=== PATIENT | male | born 1945 | race Caucasian/White ===

== ENCOUNTER → 2018-09-17 06:49 | Outpatient (CLI) | payer MEDICARE, SELFPAY ==
--- NOTE | 2018-09-17 06:51 | ECHOCS_ITS ---
Reason For Study: S/P CABG Procedure This was a 2D Doppler, Color Flow transthoracic echocardiogram. The study was technically limited. The study was technically difficult. Contrast injection was performed. Exam performed in department. Left Ventricle Normal LV size. Moderate segmental systolic dysfunction (see wall motion). The estimated ejection fraction is 25 %. [place] : Akinetic. Mid-anteroseptal : Akinetic. Infero-Basal: Normal. Mid-Inferior: Normal. Right Ventricle Normal RV size. ICD or pacer leads identified within the right ventricle. Normal systolic function. Atria Normal left atrium. Normal right atrium. Pulmonic Valve Normal pulmonic valve. Great Vessels Normal aortic root. The pulmonary artery is normal size. Normal inferior vena cava. Pericardium/Pleural No pericardial effusion. Medication Diluted definity 4.0ml given slow IV push to enhance endocardial definition. MMode/2D Measurements & Calculations LVIDd: 4.0 cm FS: 18.0 % LVOT diam: 2.0 cm LVIDs: 3.3 cm LVOT area: 3.0 cm2 RVDd: 2.2 cm Ao root diam: 2.9 cm LAV(MOD-bp): 49.1 ml LAV(MOD-bp) Indexed: 29.3 ml/m2 LA A4 area: 17.5 cm2 LAV(MOD-sp2): 45.8 ml LAV(MOD-sp4): 50.7 ml LA dimension(2D): 3.0 cm Doppler Measurements & Calculations MV E max ki: 82.8 cm/sec Lat Peak E' Ki: 9.4 cm/sec Med Peak E' Ki: 7.7 cm/sec MV A max ki: 63.9 cm/sec E/E' lat: 8.8 E/E' med: 10.7 MV E/A: 1.3 Ao V2 max: 147.5 cm/sec LV V1 max: 97.5 cm/sec PA V2 max: 64.3 cm/sec Ao max P.7 mmHg LV V1 max P.8 mmHg MARY(V,D): 2.0 cm2 TR max ki: 240.3 cm/sec TR max P.2 mmHg Interpretation Summary Normal LV size. Moderate segmental systolic dysfunction (see wall motion). The estimated ejection fraction is 25 %. Contrast injection was performed. Compared to previous study, the left ventricular systolic function has improved.. Ordering Physician: Vaibhav Pete Referring Physician: Vaibhav Pete Performed By: Ernestine Davis, ADITHYA, RVT
--- NOTE | 2018-09-17 11:17 | STRESSREP ---
Stress Test Report Pharmacologic myocardial perfusion stress test. 73-year-old man with a history of known coronary artery disease and ischemic cardiomyopathy. Resting EKG demonstrates sinus bradycardia with a rate of 59 bpm normal intervals and noted resting blood pressure 114/60 6 m of mercury. 0.4 mg of regadenoson was infused per usual protocol followed by rapid intravenous saline flush injection continuous EKG monitoring was performed. Patient maintained sinus rhythm throughout the recording the maximum heart rate attained was 83 bpm which was 56% maximum predicted heart rate the maximum workload was 1 metabolic equivalent. At rest there were no ST or T wave changes noted to suggest abnormal flow reserve at peak infusion no ST or T wave changes were noted to suggest abnormal flow reserve. Next Myocardial perfusion protocol. 10.4 mCi of technetium 99m sestamibi was injected at rest. 0.4 mg of regadenoson was infused per usual protocol. At peak infusion 32.3 mCi of technetium 99m sestamibi was injected stress images were obtained stress and rest images were reconstructed and compared in the short axis vertical long horizontal long axis. Perfusion SPECT analysis: Review of the stress images demonstrate an extensive defect noted involving the entire anterior wall to the apex and inferior apical wall. The septum also is noted to have moderately severe reduction in perfusion. The lateral wall and the inferior lateral wall appear to be the best perfused ocasio. The inferior wall is also normally perfused. The resting images demonstrate a similar patent. The above is asked suggestive of an extensive anterior septal, apical and septal infarct. No reversibility is noted to suggest ischemia. Gated SPECT analysis: The gated ejection fraction is 45% with severe hypokinesis of the anterior wall and apex. Conclusion: Ischemic cardiomyopathy. Extensive anterior anterior apical and anterior septal infarct No ischemia noted.
== END ==
PROVIDERS: Family Provider Nurse Practitioner Family; PCP Nurse Practitioner Family; Referring Provider Internal Medicine Cardiovascular Disease; Visit Provider Internal Medicine Cardiovascular Disease
DX: I25.10 Atherosclerotic heart disease of native coronary artery without angina pectoris (principal)
CPT/HCPCS: 78452; 93017; 93306; A9500; Q9957; A4216; C8929; J2785

== ENCOUNTER → 2022-09-15 | Outpatient (CLI) | payer MEDICARE, SELFPAY ==
--- NOTE | 2022-09-15 13:35 | RAD_ITS ---
STUDY: X-RAY CHEST REASON FOR EXAM: Male, 77 years old. Chest pain/pressure TECHNIQUE: PA and lateral views of the chest. COMPARISON: 05/01/2014 FINDINGS: Stable appearance of a left subclavian pacemaker The lungs are clear and expanded. There is no demonstrated pleural abnormality. Normal size heart. Normal mediastinum and jonathan. Normal visualized pulmonary arteries. There is atherosclerotic calcification of the aortic arch with tortuosity. Normal visualized thoracic spine. Normal visualized ribs, clavicles, and shoulders. There is no demonstrated abnormality of the visualized soft tissue structures of the upper abdomen. RAD/Chest PA and Lateral IMPRESSION: No acute pulmonary process Electronically Signed: Preet Veras MD at 15:29 EDT ,
[2022-09-15 15:16] LABS: Hematocrit 38.7 % (40-54); Mean Corp Hgb Conc 33.6 g/dL (32-36); Mean Corpuscular Hgb 31.9 pg (27.0-32.0); Mean Corpuscular Volume 95.1 fL (80-94); Mean Platelet Vol. 11.8 fl (6.2-12.0); Platelet Count 158 K/mm3 (150-450); RBC Distribution Width CV 15.6 % (11.6-14.6); RBC Distribution Width SD 54.1 fl (35.1-43.9); Red Blood Count 4.07 M/mm3 (4.6-6.2); White Blood Count 8.5 K/mm3 (4.4-11.0)
[2022-09-15 16:07] LABS: ALB/GLOB Ratio 1.1 RATIO (0.9-2.4); AST(SGOT) 22 U/L (15-37); Alanine Aminotransfer ALT/SGPT 16 U/L (16-61); Albumin, Serum 3.7 g/dL (3.2-5.0); Alkaline Phosphatase 109 U/L (45-117); Anion Gap 7 (5-15); BUN 21 mg/dL (7-18); BUN/Creat Ratio 11.9 RATIO (10-20); CRP 7.44 mg/L (0.0-3.0); Calcium,Total 8.9 mg/dL (8.5-10.1); Chloride 105 mmol/L (98-107); Creatinine, Serum 1.76 mg/dL (0.70-1.30); EST Glomerular Filtration Rate 40 mL/min (>60); Est Glom Filt Rate - Afr Amer 48 mL/min (>60); Globulin 3.5 g/dL (2.2-4.2); Glucose 79 mg/dL (74-106); Potassium 3.7 mmol/L (3.5-5.1); Protein, Total 7.2 g/dL (6.4-8.2); Sodium Level 140 mmol/L (136-145)
[2022-09-15 17:05] LABS: BNP,B-Type NATRIURETIC PEPTIDE 395.5 pg/mL (0-100)
== END | disposition home or self-care (01) ==
PROVIDERS: PCP Nurse Practitioner Family; Referring Provider Nurse Practitioner Family; Visit Provider Nurse Practitioner Family
DX: J44.1 Chronic obstructive pulmonary disease with (acute) exacerbation (principal); N18.30 Chronic kidney disease, stage 3 unspecified; I25.10 Atherosclerotic heart disease of native coronary artery without angina pectoris; R06.02 Shortness of breath; D53.9 Nutritional anemia, unspecified
CPT/HCPCS: 36415; 71046; 80053; 83880; 85027; 85379; 86140

== ENCOUNTER → 2022-09-16 | Outpatient (CLI) | payer MEDICARE, SELFPAY ==
--- NOTE | 2022-09-16 15:14 | CT_ITS ---
STUDY: CTA CHEST REASON FOR EXAM: Male, 77 years old. Shortness of breath for 6 months. History of MO and cardiac pacemaker. COPD. RADIATION DOSAGE (If Supplied By Facility): CTDIvol = ( 5.79 ) mGy, DLP = ( 251.32 ) mGycm TECHNIQUE: The examination was performed with the intravenous administration of IV 100mL Isovue-370. Post-processing of the angiographic images was performed, with multiplanar reformation and 3D reconstruction. Individualized dose optimization techniques were used for this CT. COMPARISON: Chest, September 15, 2022. FINDINGS: Normal enhancement of the main pulmonary artery and right and left pulmonary arteries. Normal enhancement of the bilateral peripheral pulmonary arteries. There is no demonstrated pulmonary embolism. Atherosclerotic changes of the thoracic aorta without aneurysm. There is no demonstrated aortic dissection. Normal heart and pericardium. Pacer leads are seen in the right heart. Moderate coronary artery calcifications. Calcified subcarinal lymph node. Normal hilar regions. Mildly thick-walled nondistended esophagus without obvious mass. Normal visualized trachea and bronchi. The lungs are hyper expanded, with flattening of the hemidiaphragms. No infiltrate or soft tissue mass. There are small calcified granulomata. Pleural-based calcifications are noted most marked in the lung apices. Pacer generator is seen in the soft tissues left upper chest wall. The soft tissues of the chest wall are otherwise unremarkable. Normal thyroid. Mild degenerative changes of the thoracic spine. Calcified granulomata are seen in the spleen. Question small hiatal hernia. The upper abdomen is otherwise grossly normal. CT/CTA Chest W/WO Contrast IMPRESSION: 1. No evidence of pulmonary embolus. 2. Atherosclerotic aorta without aneurysm or dissection. 3. Cardiac pacemaker. 4. Old granulomatous disease. 5. Pleural-based calcifications. Question asbestos related pleural disease. 6. Hiatal hernia. Electronically Signed: Sunday Galindo DO at 16:21 EDT Reading Location ID and State: [facility] / [place] Tel [phone], Service support ,
== END | disposition home or self-care (01) ==
LOC: CT 15:13
PROVIDERS: PCP Nurse Practitioner Family; Referring Provider Nurse Practitioner Family; Visit Provider Nurse Practitioner Family
DX: R06.02 Shortness of breath (principal); R79.89 Other specified abnormal findings of blood chemistry
CPT/HCPCS: 71275; Q9967

== ENCOUNTER 2023-02-13 16:44 | Inpatient (IN) | payer MEDICARE, SELFPAY ==
[2023-02-13] VITALS (8 sets, daily range): BP systolic 101–130; BP diastolic 55–62; PULSE 89–94; RESP 14–24; TEMP 36.7–37.2; O2SAT 96–100; BMI 22.1; BMI 20.4
--- NOTE | 2023-02-13 17:25 | EKG12_ITS ---
Test Reason : SOB Blood Pressure : / mmHG Vent. Rate : 094 BPM Atrial Rate : 094 BPM P-R Int : 116 ms QRS Dur : 084 ms QT Int : 312 ms P-R-T Axes : 019 -29 097 degrees QTc Int : 390 ms Normal sinus rhythm Normal ECG Confirmed by ARMANDO HULL, BE ([id number]), science editor NESS CONTEH ([id number]) on 02/16/2023 11:08:35 AM Referred By: JESSICA Confirmed By:MAGY ROBERTS MD
--- NOTE | 2023-02-13 17:30 | EX.ED.DYSGE1 ---
HPI History of Present Illness Chief Complaint: Shortness of Breath Informant: patient and spouse/S.O. Narrative Narrative: Patient presents with 2 different complaints. Patient's first complaint is pain near the lateral aspect of his right ankle. This started about 2 or 3 days ago. He had come home. It suddenly just started hurting him over the course of about an hour. He evidently has had great toe pain before but is never been diagnosed with gout. He has no known history of it. He has no trauma or injury. He has had history of vascular insufficiency but that did not present anywhere near like this. Patient is on Coumadin. But he has no swelling at the area. Patient was also at a different hospital emergency department yesterday because of this. They did ultrasound of the leg to evaluate for DVT and he does not have any. He has history of prior DVTs and is on and is taking his Coumadin. Patient's second complaint is dyspnea. But both the patient and his state that he has been short of breath since last summer almost all the time. It waxes and wanes and is really not different today than normal. He has seen his doctor. Over the last 6 or 8 months he has been on steroids a few times. They do not really help. I asked him when he last used his nebulizer and he states that was about a month ago. I asked when he last smoked and that was just earlier today. He does cough but he is not bringing up sputum. He is not coughing up blood. He is not having chest pain. It sounds like this dyspnea is really a chronic issue that is coming and going and not his primary reason for the visit today even though it is listed on the triage note. His lateral ankle pain is bothering him more. But the pain is only on the lateral aspect. [facility] Medical History (Updated 02/13/23 @ 21:[address] 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 Shortness of breath Home Medications aspirin 81 mg tablet,delayed release (Adult Low Dose Aspirin) 81 mg PO QDAY 01/21/18 [History Last Taken Unknown] atorvastatin 80 mg tablet 80 mg PO QDAY 01/21/18 [History Last Taken Unknown] warfarin 5 mg tablet (Coumadin) 7 mg PO QDAY 01/26/18 [History Last Taken Unknown] furosemide 40 mg tablet 40 mg PO QDAY #90 tabs 09/20/19 [Rx Last Taken Unknown] carvedilol 12.5 mg tablet 12.5 mg PO BID #180 tabs 04/27/20 [Rx Last Taken Unknown] losartan 25 mg tablet 25 mg PO DAILY #90 tabs 10/12/20 [Rx Last Taken Unknown] albuterol sulfate 90 mcg/actuation aerosol inhaler 2 puff inhalation Q6H SOB 02/13/23 [History Last Taken Unknown] cholecalciferol (vitamin D3) 1,250 mcg (50,000 unit) capsule 1,250 mcg PO DAILY 02/13/23 [History Last Taken Unknown] fluticasone 250 mcg-salmeterol 50 mcg/dose blistr powdr for inhalation (Wixela Inhub) 1 inh inhalation BID 02/13/23 [History Last Taken Unknown] montelukast 10 mg tablet 10 mg PO DAILY 02/13/23 [History Last Taken Unknown] pantoprazole 40 mg tablet,delayed release 40 mg PO DAILY 02/13/23 [History Last Taken Unknown] Allergy/AdvReac Type Severity Reaction Status Date / Time Penicillins AdvReac Severe Unknown Verified 02/13/23 16:45 Family History Uncle CAD (coronary artery disease) Surgical History History of coronary artery stent placement (08/23/10) History of implantable cardiac defibrillator (ICD) (12/2011) Status post femorofemoral bypass surgery Social History Smoking Status: Current every day smoker tobacco type: cigarettes alcohol intake: current alcohol intake frequency: holidays/special occasions only substance use type: does not use caffeine: Yes Type: coffee Number of servings: 1 ROS ROS ED Constitutional Constitutional ED: Denies chills, fever(s) or sweats ENT ENT ED: Denies rhinorrhea or sore throat Cardiovascular Cardiovascular: Denies chest pain, palpitations or racing heartbeat Respiratory/Chest Respiratory/Chest: Reports cough and dyspnea; Denies sputum Gastrointestinal Gastrointestinal: Denies abdominal pain, nausea or vomiting Genitourinary Genitourinary ED: Denies hematuria Musculoskeletal Musculoskeletal: Reports arthralgias; Denies myalgias Integumentary Denies Abrasions or rash Neurologic Neurologic: Denies paresthesias or weakness Hematologic/Lymphatic Hematologic/Lymphatic: Reports easy bleeding and easy bruising Allergic/Immunologic Allergic/Immunologic ED: Denies urticaria EXAM Physical Exam Narrative Exam Narrative: Patient awake alert no acute distress. He is on oxygen at this time. Carries on conversation but is not offering a lot of details without work. He is hard of hearing. HEENT shows no trauma. No petechiae intraorally. Conjunctive is not pale Neck shows no JVD. There is no stridor. Lungs: I can hear wheezing even without a stethoscope. He has diffuse expiratory wheezing throughout. I do not hear rhonchi. There is no apparent discomfort with breathing. Despite this, his saturations were 97% on room air showing no hypoxia. He was placed on 2 L and he is hanging at 100% on 2 L. Heart is regular. Rate of about 90. I do not hear murmur. However, he has very loud oscillatory signs from his lungs that would preclude hearing a murmur. Abdomen is thin and nontender Extremities show no swelling. No pallor. He has normal warmth. No sign of vascular insufficiency. He does have tenderness just over the distal fibula area on the right. He does not have tenderness to the medial malleolus. There is just a little redness in this area but is not warm. I can move the ankle [id number] without any obvious discomfort. No lymphangitic streaking. This does not appear to be septic ankle at all. Const Vital Signs: 02/13/23 16:45 02/13/23 16:44 02/13/23 16:51 Temperature 99 F Temperature Source Temporal Pulse Rate 94 Respiratory Rate 14 19 H Respiratory Effort Normal Non-Labored Respiratory Depth Normal Respiratory Pattern Normal Blood Pressure 130/60 H Blood Pressure Mean 83 Pulse Ox 100 97 Oxygen Delivery Method Non-Rebreather Room Air Room Air 02/13/23 17:57 02/13/23 17:57 02/13/23 20:11 Temperature Temperature Source Pulse Rate 94 89 Respiratory Rate 19 H 20 H Respiratory Effort Short of Breath Respiratory Depth Respiratory Pattern Tachypnea Blood Pressure Blood Pressure Mean Pulse Ox 97 Oxygen Delivery Method Room Air 02/13/23 20:13 Temperature 98.0 F Temperature Source Temporal Pulse Rate 89 Respiratory Rate 18 Respiratory Effort Respiratory Depth Respiratory Pattern Blood Pressure 101/62 Blood Pressure Mean 75 Pulse Ox 97 Oxygen Delivery Method Room Air MDM MDM MDM Narrative Medical decision making narrative: Patient's white count came back very high at 27,600. This is new. I went back and talk to the patient and family again. There is a new family member here. She states that she noted the foot was been bothering him for about 2 days. She states that she is pretty sure he had a fever yesterday. He felt very warm. She verifies that his breathing is really at baseline. I took a look at the leg again. I do not know if the light is better or his change. But he does have erythema more on the anterior lateral aspect of the zhao and the top of the foot and the foot is definitely warm. This is looking more more like a cellulitis. There are several areas on the toes and toenails that are easy access points for infection. I will start vancomycin. I think with his age overall illness level, high white count and infection admission is appropriate. My independent her potation of the single AP chest x-ray shows no sign of acute infiltrate. My independent interpretation of his three-view x-ray of the right ankle shows no acute bony process. There may be some soft tissue swelling. Radiology's review of these 2 films are similar. Lab Data Labs: Laboratory Results - last 24 hr 02/13/23 02/13/23 02/13/23 17:35 17:35 17:35 WBC 27.6 H RBC 3.75 L Hgb 11.7 L Hct 35.7 L MCV 95.2 H MCH 31.2 MCHC 32.8 RDW Std Deviation 49.8 H RDW Coeff of Curtis 14.4 Plt Count 150 MPV 10.9 Neut % (Auto) Not Reportable Absolute Neuts (auto) 25.9 H Absolute Lymphs (auto) 0.28 L Total Counted 100 Neutrophils % (Manual) 82 H Band Neutrophils % 9 H Lymphocytes % (Manual) 1 L Monocytes % (Manual) 5 Metamyelocytes % 3 H Diff Path Review May foll Platelet Estimate ADEQUATE RBC Morphology NORM C+C PT 20.0 H INR 1.7 Sodium 135 L Potassium 3.7 Chloride 99 Carbon Dioxide 30.0 Anion Gap 6 BUN 33 H Creatinine 2.64 H Estim Creat Clear Calc 20.35 Est GFR (MDRD) Af Amer 30 L Est GFR (MDRD) Non-Af 25 L BUN/Creatinine Ratio 12.5 Glucose 124 H Lactic Acid Uric Acid 9.4 H Calcium 9.5 02/13/23 19:15 WBC RBC Hgb Hct MCV MCH MCHC RDW Std Deviation RDW Coeff of Curtis Plt Count MPV Neut % (Auto) Absolute Neuts (auto) Absolute Lymphs (auto) Total Counted Neutrophils % (Manual) Band Neutrophils % Lymphocytes % (Manual) Monocytes % (Manual) Metamyelocytes % Diff Path Review Platelet Estimate RBC Morphology PT INR Sodium Potassium Chloride Carbon Dioxide Anion Gap BUN Creatinine Estim Creat Clear Calc Est GFR (MDRD) Af Amer Est GFR (MDRD) Non-Af BUN/Creatinine Ratio Glucose Lactic Acid 2.1 H* Uric Acid Calcium Radiography Diagnostic Testing: Clinical Impression(s) from Imaging Studies Ankle X-Ray 02/13/23 17:45 IMPRESSION: There is soft tissue swelling. Electronically Signed: Josiah Joy MD at 18:22 EDT , Chest X-Ray 02/13/23 17:45 IMPRESSION: There are no acute findings. Electronically Signed: Josiah Joy MD at 18:21 EDT , EKG Initial EKG: Comments: My independent interpretation of the patient's EKG done for dyspnea shows a normal sinus rhythm with overall rate 94. No acute ST elevation or depression. CO interval, QRS duration and QTc are normal. Management Discussion w/another healthcare provider: Hospitalist Discharge Plan Dx/Rx/DC Orders Clinical Impression: Cellulitis of leg, right, Leukocytosis, COPD exacerbation, DAMIR (acute kidney injury), Sepsis Disposition Disposition: [facility]
[2023-02-13] MEDS: MethylPREDNISolone 125 MG/2 ML Vial IV (17:36)
--- NOTE | 2023-02-13 17:45 | RAD_ITS ---
STUDY: XR Ankle Min 3 Views REASON FOR EXAM: Male, 77 years old. ANKLE PAIN TECHNIQUE: XR Ankle Min 3 Views RIGHT COMPARISON: None. FINDINGS: Normal visualized distal tibia and fibula. Normal medial and lateral malleoli. Normal tibiotalar articulation and ankle mortise. The visualized subtalar, talonavicular, calcaneocuboid and tarsal articulations are normal. There is a plantar calcaneal spur. There is soft tissue swelling around the ankle. RAD/Ankle min 3 Views IMPRESSION: There is soft tissue swelling. Electronically Signed: Josiah Joy MD at 18:22 EDT ,
--- NOTE | 2023-02-13 17:45 | RAD_ITS ---
STUDY: XR Chest 1 View 02/13/2023 5:41 PM REASON FOR EXAM: Male, 77 years old. CHEST PAIN SOb COMPARISON: 09/15/2022 TECHNIQUE: XR Chest 1 View FINDINGS: There is no demonstrated pleural abnormality. There are multiple median sternotomy wires. Normal heart size. Normal mediastinum. Normal jonathan. Prominent appearing increased interstitial lung markings. Normal visualized pulmonary arteries. There is atherosclerotic calcification of the aortic arch with tortuosity. There are diffuse degenerative changes of the visualized thoracic spine. There is degenerative osteoarthritis of the bilateral shoulders. There is no demonstrated abnormality of the visualized soft tissue structures of the upper abdomen. RAD/Chest 1 View (Portable) IMPRESSION: There are no acute findings. Electronically Signed: Josiah Joy MD at 18:21 EDT ,
[2023-02-13 17:50] LABS: Hematocrit 35.7 % (40-54); Hemoglobin 11.7 g/dL (13.0-16.5); Mean Corp Hgb Conc 32.8 g/dL (32-36); Mean Corpuscular Hgb 31.2 pg (27.0-32.0); Mean Corpuscular Volume 95.2 fL (80-94); Mean Platelet Vol. 10.9 fl (6.2-12.0); POSITIVE COUNT YES; POSITIVE DIFFERENTIAL YES; POSITIVE MORPHOLOGY YES; Platelet Count 150 K/mm3 (150-450); RBC Distribution Width CV 14.4 % (11.6-14.6); RBC Distribution Width SD 49.8 fl (35.1-43.9); Red Blood Count 3.75 M/mm3 (4.6-6.2); White Blood Count 27.6 K/mm3 (4.4-11.0)
[2023-02-13 17:56] LABS: Differential Indicated MANUAL DIFF
[2023-02-13] MEDS: Ipratropium/Albuterol Sulfate 3 ML AMPUL.NEB INHALATION (17:57)
[2023-02-13] MEDS: Albuterol 2.5 MG/3 ML VIAL.NEB. INHALATION (17:57)
[2023-02-13 18:04] LABS: Anion Gap 6 (5-15); BUN 33 mg/dL (7-18); BUN/Creat Ratio 12.5 RATIO (10-20); Calcium,Total 9.5 mg/dL (8.5-10.1); Chloride 99 mmol/L (98-107); Creatinine, Serum 2.64 mg/dL (0.70-1.30); EST Glomerular Filtration Rate 25 mL/min (>60); Est Glom Filt Rate - Afr Amer 30 mL/min (>60); Estimated Creatinine Clearance 20.35 ml/min; Glucose 124 mg/dL (74-106); Potassium 3.7 mmol/L (3.5-5.1); Sodium Level 135 mmol/L (136-145); Uric Acid 9.4 mg/dL (3.5-7.2)
[2023-02-13 18:06] LABS: International Normalized Ratio 1.7
[2023-02-13 18:16] LABS: Lymphocyte 1 % (19-41); Metamyelocyte 3 % (0-1); Monocyte 5 % (0-10); Neutrophil-Band 9 % (0-5); Neutrophil-Segmented 82 % (47-70); Total Cells Counted 100 (MANUAL DIFF)
[2023-02-13 18:18] LABS: Absolute Neutrophil Count 25.9 X10^3/uL (2.0-7.7); Lymphocyte # 0.28 X10^3/ul (0.83-4.51); Neutrophil # 25.93 X10^3/uL (2.7-7.7)
[2023-02-13 18:19] LABS: Absolute Lymphocyte Count 0.28 X10^3/uL (0.83-4.51); Platelet Estimate ADEQUATE (ADEQ); Red Cell Morphology NORM C+C NORMAL (NORM C&C)
[2023-02-13] MEDS: 0.9% Normal Saline 1,000 ML 999 ML IV (19:16)
[2023-02-13] MEDS: Vancomycin IV 1,000 MG/200 ML BAG 200 MG IV (20:09)
[2023-02-13 20:25] LABS: Lactic Acid 2.1 mmol/L (0.4-1.9)
--- NOTE | 2023-02-13 20:33 | PCM.HP.STD ---
HPI - General General Date of Admission: 02/13/23 Date of Service: 02/13/23 Chief Complaint: Right foot pain HPI Narrative TANMAY WHITNEY, is a 77 M with a significant history of heart failure with ejection fraction; DVT and COPD who was brought from the [facility] office by paramedics because of right foot pain causing him difficulty with ambulation. Because a day before presentation patient could walk to his [facility] office for an INR check and on the day of presentation patient had to be helped with ambulation his MD was concerned so patient was sent to the emergency department. Patient reports pain of severity 7 on a scale of 1-10 at his right foot. His pain worsens with ambulation and improves with rest. He reports erythema at his right foot. A day before presentation patient was at [facility] office for his right foot pain. At that time he had a temperature of 100.4 Fahrenheit. Chest x-ray and ultrasound of his right leg was done. Reportedly the ultrasound was negative for blood clots. Patient was discharged home. Family who was at the bedside reported that on the day before presentation patient only had a small spot of erythema. However patient's did have jennifer erythema of his right foot on the day of presentation. Associated with patient's symptoms is chills, rigors and poor appetite. Also patient at baseline has difficulty breathing. However his difficulty with breathing worsened a day before presentation and has persisted. He has a yellow productive cough that appears unchanged from baseline. 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 Shortness of breath Smoker Home Medications aspirin 81 mg tablet,delayed release (Adult Low Dose Aspirin) 81 mg PO QDAY 01/21/18 [History Last Taken Unknown] atorvastatin 80 mg tablet 80 mg PO QDAY 01/21/18 [History Last Taken Unknown] warfarin 5 mg tablet (Coumadin) 7 mg PO QDAY 01/26/18 [History Last Taken Unknown] furosemide 40 mg tablet 40 mg PO QDAY #90 tabs 09/20/19 [Rx Last Taken Unknown] carvedilol 12.5 mg tablet 12.5 mg PO BID #180 tabs 04/27/20 [Rx Last Taken Unknown] losartan 25 mg tablet 25 mg PO DAILY #90 tabs 10/12/20 [Rx Last Taken Unknown] albuterol sulfate 90 mcg/actuation aerosol inhaler 2 puff inhalation Q6H SOB 02/13/23 [History Last Taken Unknown] cholecalciferol (vitamin D3) 1,250 mcg (50,000 unit) capsule 1,250 mcg PO DAILY 02/13/23 [History Last Taken Unknown] fluticasone 250 mcg-salmeterol 50 mcg/dose blistr powdr for inhalation (Wixela Inhub) 1 inh inhalation BID 02/13/23 [History Last Taken Unknown] montelukast 10 mg tablet 10 mg PO DAILY 02/13/23 [History Last Taken Unknown] pantoprazole 40 mg tablet,delayed release 40 mg PO DAILY 02/13/23 [History Last Taken Unknown] Allergy/AdvReac Type Severity Reaction Status Date / Time Penicillins AdvReac Severe Unknown Verified 02/13/23 22:53 Family History Uncle CAD (coronary artery disease) Surgical History History of coronary artery stent placement (08/23/10) History of implantable cardiac defibrillator (ICD) (12/2011) Status post femorofemoral bypass surgery Social History Smoking Status: Current every day smoker tobacco type: cigarettes alcohol intake: current alcohol intake frequency: holidays/special occasions only substance use type: does not use caffeine: Yes Type: coffee Number of servings: 1 ROS ROS Narrative Pertinent positives and pertinent negatives as noted in HPI. All other systems were reviewed and are negative Vital Signs Vital Signs Vital Signs: 02/13/23 16:45 02/13/23 16:44 02/13/23 16:51 Temperature 99 F Temperature Source Temporal Pulse Rate 94 Respiratory Rate 14 19 H Respiratory Effort Normal Non-Labored Respiratory Depth Normal Respiratory Pattern Normal Blood Pressure 130/60 H Blood Pressure Mean 83 Pulse Ox 100 97 Oxygen Delivery Method Non-Rebreather Room Air Room Air 02/13/23 17:57 02/13/23 17:57 02/13/23 20:11 Temperature Temperature Source Pulse Rate 94 89 Respiratory Rate 19 H 20 H Respiratory Effort Short of Breath Respiratory Depth Respiratory Pattern Tachypnea Blood Pressure Blood Pressure Mean Pulse Ox 97 Oxygen Delivery Method Room Air 02/13/23 20:13 Temperature 98.0 F Temperature Source Temporal Pulse Rate 89 Respiratory Rate 18 Respiratory Effort Respiratory Depth Respiratory Pattern Blood Pressure 101/62 Blood Pressure Mean 75 Pulse Ox 97 Oxygen Delivery Method Room Air Weight Weight: 62.4 kg Body Mass Index (BMI) 22.1 Physical Exam Narrative Physical exam: General: Well-nourished, well-developed. Head: Normocephalic, atraumatic, no tenderness Eyes: Vision is grossly intact. EOMI ENT, no trauma, dry mucous membranes, no rhinorrhea Neck: Nontender, No thyromegaly. CVS: Regular rate and rhythm. S1-S2 present. No murmur, gallop or rub. Respiratory : Tachypnea; audible wheezing. Abdomen: Soft, nontender, nondistended, normal bowel sounds, no masses : Deferred Back: Nontender, no CVA tenderness. Extremities: Erythema and tenderness of lateral side of right foot; Skin: Normal color, no trauma, abrasions Neuro: Alert, oriented, cranial nerves II through XII grossly intact. Psychiatry: Normal mood. Normal affect. Not depressed. Not anxious. Results Lab / Micro Data Result Diagrams: 02/13/23 17:35 02/13/23 17:35 Labs: Laboratory Results - last 24 hr 02/13/23 17:35: WBC 27.6 H, RBC 3.75 L, Hgb 11.7 L, Hct 35.7 L, MCV 95.2 H, MCH 31.2, MCHC 32.8, RDW Std Deviation 49.8 H, RDW Coeff of Curtis 14.4, Plt Count 150, MPV 10.9, Neut % (Auto) Not Reportable, Absolute Neuts (auto) 25.9 H, Absolute Lymphs (auto) 0.28 L, Total Counted 100, Neutrophils % (Manual) 82 H, Band Neutrophils % 9 H, Lymphocytes % (Manual) 1 L, Monocytes % (Manual) 5, Metamyelocytes % 3 H, Diff Path Review March, Platelet Estimate ADEQUATE, RBC Morphology NORM C+C 02/13/23 17:35: Sodium 135 L, Potassium 3.7, Chloride 99, Carbon Dioxide 30.0, Anion Gap 6, BUN 33 H, Creatinine 2.64 H, Estim Creat Clear Calc 20.35, Est GFR (MDRD) Af Amer 30 L, Est GFR (MDRD) Non-Af 25 L, BUN/Creatinine Ratio 12.5, Glucose 124 H, Uric Acid 9.4 H, Calcium 9.5 02/13/23 17:35: PT 20.0 H, INR 1.7 02/13/23 19:15: Lactic Acid 2.1 H* Radiology Impression Ankle X-Ray 02/13/23 17:45 IMPRESSION: There is soft tissue swelling. Electronically Signed: Josiah Joy MD at 18:22 EDT , Chest X-Ray 02/13/23 17:45 IMPRESSION: There are no acute findings. Electronically Signed: Josiah Joy MD at 18:21 EDT , Assessment & Plan Assessment/Plan (1) Cellulitis of leg, right: (2) Leukocytosis: (3) DAMIR (acute kidney injury): (4) COPD exacerbation: (5) Cellulitis of foot: (6) Sepsis: PLAN: Plan The patient presented with sepsis due to (cellulitis) with acute sepsis related organ dysfunction as evidenced by (organ dysfunction/s of lactic acidosis and DAMIR). SIRS criteria: Heart rate more than 90 WBC more than 12,000 (patient has a white count of 27,600), trend CBC Lactate more than 2 mmol/L; trend. Cellulitis of right leg and right foot Of note patient also has bandemia of 9% Differential diagnosis includes gout. Of note patient's uric acid is elevated, 9.4 (normal 3.5-7.2). Patient is receiving steroids for COPD which would also help with gout. Vancomycin IV started emergency department and continued. Reports penicillin allergy as a child without reporting any specific allergy symptoms. Will start patient on cefazolin IV. Acute exacerbation of COPD COVID antigen and rapid flu antigen ordered. Impression of chest x-ray by radiologist: There are no acute findings. Actual chest x-ray image was visualized and independently interpreted and I agree with radiologist interpretation. Scheduled DuoNeb Albuterol as needed Antibiotics as above. Monitor BMP and CBC DAMIR on CKD stage IIIb Creatinine presentation was 2.64. His creatinine on 06/15/2022 was 1.76. Hold home Lasix and losartan. Avoid nephrotoxic's. Gentle IV hydration. Trend BMP. History of DVT with subtherapeutic INR Lovenox ordered for bridging. Escalate home warfarin dose when home dose is verified. Chronic heart failure with reduced ejection fraction/ischemic cardiomyopathy Last echocardiogram on file was on 09/17/2018. Echocardiogram at that time showed EF of 25% Appears stable Check BNP Aspirin, carvedilol continued. Atorvastatin continued DVT Prophylaxis: Lovenox as above. Charges/Coding Visit Charges Inpatient E&M: 58137 Init Hosp L3
[2023-02-13 23:23] LABS: Reflex Lactate? Y
[2023-02-13] MEDS: 0.9% Normal Saline 1,000 ML 60 ML IV (23:23)
[2023-02-13] MEDS: Cefazolin 1 GM/50 ML BAG IV (23:38)
[2023-02-13] MEDS: Carvedilol 12.5 MG Tablet PO (23:38)
[2023-02-13] MEDS: Atorvastatin Calcium 80 MG Tablet PO (23:38)
[2023-02-13] MEDS: Enoxaparin 60 MG/0.6 ML Syringe SC (23:38)
[2023-02-14] VITALS (14 sets, daily range): BP systolic 90–113; BP diastolic 50–60; PULSE 82–95; RESP 16–22; TEMP 36.5–36.9; O2SAT 94–97
[2023-02-14] MEDS: Ipratropium/Albuterol Sulfate 3 ML AMPUL.NEB INHALATION ×6 (00:12→23:03)
--- NOTE | 2023-02-14 00:26 | PCM.RX.CS ---
Consult Pharmacy has been consulted to manage selected antiobiotic: Vancomycin Type of Consult: New start Suspected Infection: Sepsis Prior Doses of Antibiotics Received/Current Regimen: Medications Vancomycin HCl () 500 mg in 100 mls @ 100 mls/hr IV Q24H DAGOBERTO Discontinued Medications Vancomycin HCl (Vancomycin) 1,000 mg in 200 mls @ 200 mls/hr 15 mg/kg (1000 mg) IV X1 ONE Stop: 02/13/23 20:37 Last Admin: 02/13/23 21:10 Dose: Infused Labs: Sodium 135 mmol/L (136-145) L 02/13/23 17:35 Potassium 3.7 mmol/L (3.5-5.1) 02/13/23 17:35 Chloride 99 mmol/L (98-107) 02/13/23 17:35 Carbon Dioxide 30.0 mmol/L (21.0-32.0) 02/13/23 17:35 Anion Gap 6 (5-15) 02/13/23 17:35 BUN 33 mg/dL (7-18) H 02/13/23 17:35 Creatinine 2.64 mg/dL (0.70-1.30) H 02/13/23 17:35 Est GFR (MDRD) Af Amer 30 mL/min (>60) L 02/13/23 17:35 Est GFR (MDRD) Non-Af 25 mL/min (>60) L 02/13/23 17:35 BUN/Creatinine Ratio 12.5 RATIO (10-20) 02/13/23 17:35 Glucose 124 mg/dL (74-106) H 02/13/23 17:35 Microbiology: Microbiology 02/13/23 22:20 Nasal Secretion SARS-CoV-2 & FLU Antigen (Rapid) - Final Weight used for dosin.3 kg Estimated Creatinine Clearance: 20.4 Goal Trough: 15-20 mcg/mL Pharmacy Plan for Drug Dosing: Pharmacy Service will continue to monitor and adjust dosing as required. Follow-Up Labs: Trough Vancomycin Labs to be done on [date and time ordered]: 02/15/23 @1930
--- NOTE | 2023-02-14 01:30 | NURSING ---
This RN took over patient care at this time.
[2023-02-14] MEDS: 0.9% Saline Lock 10 ML Syringe IV ×2 (06:22→21:54)
[2023-02-14 07:07] LABS: Mean Corp Hgb Conc 33.3 g/dL (32-36); Mean Corpuscular Hgb 31.1 pg (27.0-32.0); Mean Corpuscular Volume 93.2 fL (80-94); Mean Platelet Vol. 11.3 fl (6.2-12.0); POSITIVE COUNT YES; POSITIVE DIFFERENTIAL YES; POSITIVE MORPHOLOGY YES; Platelet Count 124 K/mm3 (150-450); RBC Distribution Width CV 14.3 % (11.6-14.6); RBC Distribution Width SD 49.5 fl (35.1-43.9); Red Blood Count 3.54 M/mm3 (4.6-6.2); White Blood Count 26.1 K/mm3 (4.4-11.0)
[2023-02-14 07:11] LABS: Differential Indicated MANUAL DIFF
[2023-02-14 07:31] LABS: Metamyelocyte 2 % (0-1); Neutrophil-Band 10 % (0-5); Neutrophil-Segmented 76 % (47-70); Total Cells Counted 100 (MANUAL DIFF)
[2023-02-14 07:32] LABS: Acanthocytes RARE; Anion Gap 6 (5-15); BUN 34 mg/dL (7-18); BUN/Creat Ratio 15.8 RATIO (10-20); Calcium,Total 8.7 mg/dL (8.5-10.1); Chloride 104 mmol/L (98-107); Creatinine, Serum 2.15 mg/dL (0.70-1.30); EST Glomerular Filtration Rate 32 mL/min (>60); Est Glom Filt Rate - Afr Amer 38 mL/min (>60); Estimated Creatinine Clearance 22.95 ml/min; Glucose 161 mg/dL (74-106); Lymphocyte 9 % (19-41); Monocyte 3 % (0-10); Platelet Estimate SLT DEC (ADEQ); Potassium 3.5 mmol/L (3.5-5.1); Sodium Level 135 mmol/L (136-145)
[2023-02-14 07:33] LABS: Absolute Lymphocyte Count 2.35 X10^3/uL (0.83-4.51); Absolute Neutrophil Count 22.5 X10^3/uL (2.0-7.7); Lymphocyte # 2.35 X10^3/ul (0.83-4.51); Neutrophil # 22.48 X10^3/uL (2.7-7.7)
[2023-02-14 07:42] LABS: BNP,B-Type NATRIURETIC PEPTIDE 482.5 pg/mL (0-100)
--- NOTE | 2023-02-14 07:50 | EKG12_ITS ---
Test Reason : RHYTHM CHANGE Blood Pressure : / mmHG Vent. Rate : 082 BPM Atrial Rate : 082 BPM P-R Int : 138 ms QRS Dur : 088 ms QT Int : 360 ms P-R-T Axes : 087 -33 101 degrees QTc Int : 420 ms Sinus rhythm with Premature ventricular complexes or Fusion complexes Left axis deviation Pulmonary disease pattern Nonspecific T wave abnormality Abnormal ECG Confirmed by ARMANDO HULL, BE ([id number]), dictionary editor CYNTHIA MCKEON ([id number]) on 02/18/2023 10:21:07 AM Referred By: RENA Confirmed By:MAGY ROBERTS MD
[2023-02-14 08:35] LABS: International Normalized Ratio 2.3; Prothrombin Time (Protime)PT. 24.9 SECONDS (11.7-14.9)
--- NOTE | 2023-02-14 09:15 | CASEMGMT ---
TRACIE ALY Assessment: Face to Face with pt for initial transition planning/care coordination assessment. TRACIE ALY introduced self and role at [facility], pt voices understanding and consents to assessment. Pt is A/O x4 and answers all questions appropriately at this time. Pt lying in bed in no distress. Care providers, pharmacy, and demographics verified/updated. Admitting Dx:sepsis, copd exac PCP: Elliot Thompson FINANCIAL ADVISOR Specialists: Pt states he just switched narcotics investigator to one in [place] but does not know her name. Preferred Pharmacy: [facility] Insurance: [employer] Prescription Benefit: yes LNOK:Amalia Valiente, Living Arrangements: Pt lives with in a split level home with a couple of steps to enter. Pt reports he is I in ADL's and denies concerns at home. Transportation: Pt drives self and denies concerns with transportation. DME/HHC/SNF: Pt denies having any AD, he has grab bars in the bathroom. Pt denies hx of HHC or SNF stays. Pt states no concerns with going home at time of dc. Pt states no further concerns/needs. CM to follow. Advised pt to ask CM if any further question/concerns/needs arise, voices understanding. Pt Goal: Home Plan:Home
[2023-02-14] MEDS: Pantoprazole Sodium 40 MG Tablet PO (10:36)
[2023-02-14] MEDS: Enoxaparin 60 MG/0.6 ML Syringe SC (10:36)
[2023-02-14] MEDS: Montelukast 10 MG Tablet PO (10:36)
[2023-02-14] MEDS: Cefazolin 1 GM/50 ML BAG IV ×2 (10:36→21:54)
[2023-02-14] MEDS: Aspirin E.C. 81 MG Tablet PO (10:37)
[2023-02-14] MEDS: Ensure Plus High Protein 120 ML LIQUID PO ×3 (10:38→17:17)
[2023-02-14] MEDS: Carvedilol 12.5 MG Tablet PO ×2 (10:45→17:17)
--- NOTE | 2023-02-14 16:41 | PCM.PN.HOSP ---
Reason for Visit Reason for Visit: Diagnoses Sepsis, unspecified organism (02/13/23) Elevated white blood cell count, unspecified (02/13/23) Chronic obstructive pulmonary disease with (acute) exacerbation (02/13/23) Cellulitis of right lower limb (02/13/23) Cellulitis of unspecified part of limb (02/13/23) Acute kidney failure, unspecified (02/13/23) Subjective Subjective Patient was seen and examined today, his voice is hoarse but he states that this is his normal voice. He states that it is caused by COPD. Patient was admitted yesterday for cellulitis of the right lower leg and ankle area. Patient's white blood cell count today was 26.1 Objective Data Objective Data Vital Signs: Vital Signs Temp Pulse Resp BP Pulse Ox O2 Del Method 97.7 F L 90 20 H 91/50 L 97 Room Air 02/14/23 15:27 02/14/23 16:00 02/14/23 15:27 02/14/23 15:27 02/14/23 15:27 02/14/23 15:27 Oxygen Delivery Method Room Air Weight: 57.3 kg Body Mass Index (BMI) 20.4 Intake & Output: Intake and Output for Last 24 Hours 02/12/23 02/13/23 02/14/23 23:59 23:59 23:59 Intake Total 1325 / 1325 410 / 410 Output Total 500 / 500 Balance 1325 / 1325 -90 / -90 Lab / Micro Data Result Diagrams: 02/14/23 06:32 02/14/23 06:32 Labs: Laboratory Results - last 24 hr 02/13/23 17:35: WBC 27.6 H, RBC 3.75 L, Hgb 11.7 L, Hct 35.7 L, MCV 95.2 H, MCH 31.2, MCHC 32.8, RDW Std Deviation 49.8 H, RDW Coeff of Curtis 14.4, Plt Count 150, MPV 10.9, Neut % (Auto) Not Reportable, Absolute Neuts (auto) 25.9 H, Absolute Lymphs (auto) 0.28 L, Total Counted 100, Neutrophils % (Manual) 82 H, Band Neutrophils % 9 H, Lymphocytes % (Manual) 1 L, Monocytes % (Manual) 5, Metamyelocytes % 3 H, Diff Path Review May foll, Platelet Estimate ADEQUATE, RBC Morphology NORM C+C 02/13/23 17:35: Sodium 135 L, Potassium 3.7, Chloride 99, Carbon Dioxide 30.0, Anion Gap 6, BUN 33 H, Creatinine 2.64 H, Estim Creat Clear Calc 20.35, Est GFR (MDRD) Af Amer 30 L, Est GFR (MDRD) Non-Af 25 L, BUN/Creatinine Ratio 12.5, Glucose 124 H, Uric Acid 9.4 H, Calcium 9.5 02/13/23 17:35: PT 20.0 H, INR 1.7 02/13/23 19:15: Lactic Acid 2.1 H* 02/14/23 00:20: Lactic Acid 2.0 02/14/23 06:32: Sodium 135 L, Potassium 3.5, Chloride 104, Carbon Dioxide 25.0, Anion Gap 6, BUN 34 H, Creatinine 2.15 H, Estim Creat Clear Calc 22.95, Est GFR (MDRD) Af Amer 38 L, Est GFR (MDRD) Non-Af 32 L, BUN/Creatinine Ratio 15.8, Glucose 161 H, Calcium 8.7 02/14/23 06:32: WBC 26.1 H, RBC 3.54 L, Hgb 11.0 L, Hct 33.0 L, MCV 93.2, MCH 31.1, MCHC 33.3, RDW Std Deviation 49.5 H, RDW Coeff of Curtis 14.3, Plt Count 124 L, MPV 11.3, Neut % (Auto) Not Reportable, Absolute Neuts (auto) 22.5 H, Absolute Lymphs (auto) 2.35, Total Counted 100, Neutrophils % (Manual) 76 H, Band Neutrophils % 10 H, Lymphocytes % (Manual) 9 L, Monocytes % (Manual) 3, Metamyelocytes % 2 H, Diff Path Review May vladislav, Platelet Estimate SLT DEC, Acanthocytes (Spur) RARE 02/14/23 06:32: PT 24.9 H, INR 2.3 02/14/23 06:32: B-Natriuretic Peptide 482.5 H Micro: Microbiology 02/13/23 19:15 Blood Culture (Wb) - Anticubital Left Blood Culture - Preliminary 02/13/23 19:30 Blood Culture (Wb) - No Site/Description Given Blood Culture - Preliminary 02/13/23 22:20 Nasal Secretion SARS-CoV-2 & FLU Antigen (Rapid) - Final Radiography Diagnostic Testing: Radiology Impression Ankle X-Ray 02/13/23 17:45 IMPRESSION: There is soft tissue swelling. Electronically Signed: Josiah Joy MD at 18:22 EDT , Chest X-Ray 02/13/23 17:45 IMPRESSION: There are no acute findings. Electronically Signed: Josiah Joy MD at 18:21 EDT , Physical Exam Const alert, oriented x3 and no apparent distress General Appearance: cooperative, well kempt and well developed Orientation / Consciousness: awake, oriented to person and oriented to place HEENT normocephalic, head/scalp atraumatic and moist oral mucous membranes HEENT Narrative: Patient has a hoarse voice Eyes PERRL, EOMs intact bilaterally and conjunctivae normal Neck supple, no JVD, thyroid normal and no carotid bruits General: trachea midline Resp normal respiratory effort, no retractions, no use of accessory muscles and clear to auscultation bilaterally Auscultation: Negative for rales, rhonchi or wheezes Cardio regular rate, regular rhythm, S1 normal heart sound, S2 normal heart sound, no murmurs, no rub and no gallops GI normal to inspection, nondistended, normoactive bowel sounds, soft to palpation, non-tender and non-distended Extremity Extremity Narrative: There is some edema and warmth of the patient's right ankle and dorsal foot area, this extends to right above the ankle area proximally, this area is slightly tender to palpation Skin no rashes or lesions noted General Skin Exam: no breakdown Neuro oriented x3, CN's II-XII intact bilaterally, no focal motor deficits and no sensory deficits noted Sensorium / Orientation: awake and alert Speech: speech normal Psych affect normal Assessment & Plan Assessment/Plan (1) Cellulitis of leg, right: PLAN: Plan 1. Sepsis secondary to cellulitis of the right foot and ankle-I will change the patient's antibiotic coverage to Rocephin, Ancef will be discontinued #2 dehydration on a backdrop of what appears to be chronic kidney disease-patient's last creatinine in the chart before this admission was 09/15/2022, his creatinine at that time was 1.76-creatinines before that time for several years previous and they were also elevated but not to that extent. I suspect the patient has a backdrop of chronic kidney disease. Continue present antibiotic fluid administration, repeat BMP tomorrow #3 chronic obstructive pulmonary disease with exacerbation-I have elected to continue the patient's aerosol treatments and IV corticosteroids for now #4 atherosclerotic heart disease-continue present medications #5 history of ischemic cardiomyopathy-patient's last echocardiogram on file here is from 2017, his EF was 25% at that time, continue home medications, according to cardiology visits contained in his medical record here, patient has a history of an ICD. He also has a history of atrial fibrillation and he is currently on Coumadin #6 hyperlipidemia-patient is on a statin currently #7 essential hypertension-patient will remain on his present medication #8 chronic use of Coumadin-patient has a past history of PE and DVT, he will remain on Coumadin at this time, INR was 2.3 on admission, he also has a history of atrial fibrillation #9 paroxysmal atrial fibrillation-patient remains on Coumadin at this time #10 hypercoagulable state secondary to #9-patient is on Coumadin Total clinical time spent by myself addressing the patient's medical issues, reviewing all of his data, and collaborating with patient's care team: 37 minutes Charges/Coding Visit Charges Inpatient E&M: 34837 Subs Hosp L2
[2023-02-14] MEDS: 0.9% Normal Saline 1,000 ML 60 ML IV (16:56)
[2023-02-14] MEDS: Vancomycin IV 500 MG/100 ML BAG 100 MG IV (19:49)
[2023-02-14] MEDS: Atorvastatin Calcium 80 MG Tablet PO (19:50)
[2023-02-15] VITALS (10 sets, daily range): BP systolic 83–111; BP diastolic 47–60; PULSE 81–94; RESP 16–18; TEMP 36.2–36.6; O2SAT 95–98
[2023-02-15 05:41] LABS: Hematocrit 30.9 % (40-54); Hemoglobin 10.2 g/dL (13.0-16.5); Mean Corpuscular Hgb 30.6 pg (27.0-32.0); Mean Corpuscular Volume 92.8 fL (80-94); Mean Platelet Vol. 12.3 fl (6.2-12.0); POSITIVE COUNT YES; POSITIVE DIFFERENTIAL YES; POSITIVE MORPHOLOGY YES; Platelet Count 150 K/mm3 (150-450); RBC Distribution Width CV 14.5 % (11.6-14.6); Red Blood Count 3.33 M/mm3 (4.6-6.2); White Blood Count 25.5 K/mm3 (4.4-11.0)
[2023-02-15 05:46] LABS: Differential Indicated MANUAL DIFF
[2023-02-15 05:51] LABS: International Normalized Ratio 2.5; Prothrombin Time (Protime)PT. 26.3 SECONDS (11.7-14.9)
[2023-02-15 06:33] LABS: Acanthocytes RARE; Lymphocyte 1 % (19-41); Metamyelocyte 1 % (0-1); Monocyte 7 % (0-10); Neutrophil-Band 8 % (0-5); Neutrophil-Segmented 83 % (47-70); Platelet Estimate ADEQUATE (ADEQ); Total Cells Counted 100 (MANUAL DIFF)
[2023-02-15 06:34] LABS: Absolute Lymphocyte Count 0.25 X10^3/uL (0.83-4.51); Absolute Neutrophil Count 23.2 X10^3/uL (2.0-7.7); Lymphocyte # 0.25 X10^3/ul (0.83-4.51); Neutrophil # 23.17 X10^3/uL (2.7-7.7)
[2023-02-15] MEDS: Ipratropium/Albuterol Sulfate 3 ML AMPUL.NEB INHALATION ×5 (07:23→19:45)
[2023-02-15] MEDS: Montelukast 10 MG Tablet PO (08:53)
[2023-02-15] MEDS: Pantoprazole Sodium 40 MG Tablet PO (08:53)
[2023-02-15] MEDS: Aspirin E.C. 81 MG Tablet PO (08:53)
[2023-02-15] MEDS: Enoxaparin 60 MG/0.6 ML Syringe SC (08:53)
[2023-02-15] MEDS: Cefazolin 1 GM/50 ML BAG IV (08:56)
[2023-02-15] MEDS: Ensure Plus High Protein 120 ML LIQUID PO ×4 (08:56→20:09)
[2023-02-15] MEDS: 0.9% Normal Saline 1,000 ML 60 ML IV (09:39)
--- NOTE | 2023-02-15 11:52 | CT_ITS ---
HISTORY: hoarseness. TECHNIQUE: Helically acquired images were obtained of the neck after the intravenous administration of 100 mL Isovue please. A radiation dose optimization technique was used for this scan. 287 images. COMPARISON: None. FINDINGS: Motion artifact lowers the sensitivity of examination. NASOPHARYNX: Unremarkable. SUPRAHYOID NECK: Unremarkable oropharynx, oral cavity, parapharyngeal space, and retropharyngeal space. INFRAHYOID NECK: Unremarkable epiglottis. Small bilateral laryngoceles incidentally noted. Mild asymmetric soft tissue thickening and enhancement of the left hypopharynx and in the left vocal fold measuring 8 x 12 mm. THYROID: No focal lesions. SALIVARY GLANDS: Homogeneous parotid and submandibular glands. LYMPH NODES: No cervical or supraclavicular lymphadenopathy. VASCULAR STRUCTURES: Carotid atherosclerosis particularly on the left, obscured by motion artifact. PARANASAL SINUSES, MASTOID AIR CELLS: No significant air fluid levels. OSSEOUS STRUCTURES: Degenerative change LUNG APICES: Emphysema with calcified pleural parenchymal scarring. Cardiac pacemaker noted. CT/Soft Tissue Neck WITH Contrast IMPRESSION: Asymmetric soft tissue thickening of the left hypopharynx with a small enhancing nodule in the left vocal cord, which may represent an inflammatory or neoplastic lesion. Recommend correlation with direct visualization. Electronically Signed: Maeve Hopson MD at 14:17 EDT ,
--- NOTE | 2023-02-15 11:52 | CT_ITS ---
HISTORY: hoarseness, COPD. TECHNIQUE: CT of the chest was performed after the intravenous administration of 100 mL Isovue-370. Coronal and sagittal reformatted images. Individualized dose optimization techniques were used for this CT. 818 images. COMPARISON: Complex R3 3123, CT 09/16/2022. FINDINGS: CENTRAL AIRWAYS: Patent. LUNGS: Biapical emphysema with calcified biapical pleural parenchymal scarring. Stable pleural-based 2 mm right lower lobe nodule laterally. Mild dependent right lower lobe atelectasis. Calcified lingular granuloma. PLEURA: No pneumothorax or significant pleural effusion. HEART/PERICARDIUM: Heart within normal limits in size with pacemaker in place and multivessel coronary artery disease. No pericardial effusion. AORTA/VESSELS: No thoracic aortic aneurysm or dissection flap. Atherosclerosis noted. No filling defect identified in the pulmonary arteries. MEDIASTINUM/JUSTA: Small calcified subcarinal lymph node. OSSEOUS STRUCTURES: Degenerative change. UPPER ABDOMEN: Calcified splenic granulomas. Ulcerated mural thrombus and calcified plaque in the abdominal aorta. CT/Chest WITH Contrast IMPRESSION: No evidence of pulmonary embolism, thoracic aortic aneurysm, or dissection. No acute abnormality identified with biapical pulmonary emphysema and calcified pleural parenchymal scarring. Electronically Signed: Maeve Hopson MD at 13:42 EDT ,
[2023-02-15] MEDS: Carvedilol 12.5 MG Tablet PO (17:14)
--- NOTE | 2023-02-15 18:04 | PN.HOSP_ITS ---
Reason for Visit Reason for Visit: Diagnoses Sepsis, unspecified organism (02/13/23) Elevated white blood cell count, unspecified (02/13/23) Chronic obstructive pulmonary disease with (acute) exacerbation (02/13/23) Cellulitis of right lower limb (02/13/23) Cellulitis of unspecified part of limb (02/13/23) Acute kidney failure, unspecified (02/13/23) Subjective Subjective Was seen and examined today, his white count is declining slightly but is still elevated. Patient's blood culture grew out strep pyogenes. I talked to the who was in the room at the time my examination, patient has been hoarse ever since last June, she complained that he has been weak recently, I told her that we would have PT and OT see the patient. Objective Data Objective Data Vital Signs: Vital Signs Temp Pulse Resp BP Pulse Ox O2 Del Method 97.8 F 89 16 104/55 L 97 Room Air 02/15/23 14:17 02/15/23 17:11 02/15/23 15:00 02/15/23 17:11 02/15/23 14:17 02/15/23 14:42 Oxygen Delivery Method Room Air Weight: 57.3 kg Body Mass Index (BMI) 20.4 Intake & Output: Intake and Output for Last 24 Hours 02/13/23 02/14/23 02/15/23 23:59 23:59 23:59 Intake Total 1325 / 1325 1947.33 / 1947.33 1583 / 1583 Output Total 500 / 900 925 / 925 Balance 1325 / 1325 1447.33 / 1047.33 658 / 658 Lab / Micro Data Result Diagrams: 02/15/23 05:09 02/14/23 06:32 Labs: Laboratory Results - last 24 hr 02/15/23 05:09: PT 26.3 H, INR 2.5 02/15/23 05:09: WBC 25.5 H, RBC 3.33 L, Hgb 10.2 L, Hct 30.9 L, MCV 92.8, MCH 30.6, MCHC 33.0, RDW Std Deviation 49.0 H, RDW Coeff of Curtis 14.5, Plt Count 150, MPV 12.3 H, Neut % (Auto) Not Reportable, Absolute Neuts (auto) 23.2 H, Absolute Lymphs (auto) 0.25 L, Total Counted 100, Neutrophils % (Manual) 83 H, Band Neutrophils % 8 H, Lymphocytes % (Manual) 1 L, Monocytes % (Manual) 7, Metamyelocytes % 1, Diff Path Review May foll, Platelet Estimate ADEQUATE, Acanthocytes (Spur) RARE Micro: Microbiology 02/13/23 19:30 Blood Culture (Wb) - No Site/Description Given Blood Culture - Preliminary Streptococcus pyogenes 02/13/23 19:15 Blood Culture (Wb) - Anticubital Left Bacteria Detection (PCR) - Final Streptococcus pyogenes 02/13/23 19:15 Blood Culture (Wb) - Anticubital Left Blood Culture - Prelimi nary Streptococcus pyogenes 02/13/23 22:20 Nasal Secretion SARS-CoV-2 & FLU Antigen (Rapid) - Final Radiography Diagnostic Testing: Radiology Impression Chest CT 02/15/23 11:52 IMPRESSION: No evidence of pulmonary embolism, thoracic aortic aneurysm, or dissection. No acute abnormality identified with biapical pulmonary emphysema and calcified pleural parenchymal scarring. Electronically Signed: Maeve Hopson MD at 13:42 EDT , Soft Tissue Neck CT 02/15/23 11:52 IMPRESSION: Asymmetric soft tissue thickening of the left hypopharynx with a small enhancing nodule in the left vocal cord, which may represent an inflammatory or neoplastic lesion. Recommend correlation with direct visualization. Electronically Signed: Maeve Hopson MD at 14:17 EDT , Physical Exam Narrative alert, oriented x3 and no apparent distress General Appearance: cooperative, well kempt and well developed Orientation / Consciousness: awake, oriented to person and oriented to place HEENT normocephalic, head/scalp atraumatic and moist oral mucous membranes HEENT Narrative: Patient has a hoarse voice Eyes PERRL, EOMs intact bilaterally and conjunctivae normal Neck supple, no JVD, thyroid normal and no carotid bruits General: trachea midline Resp normal respiratory effort, no retractions, no use of accessory muscles and clear to auscultation bilaterally Auscultation: Negative for rales, rhonchi or wheezes Cardio regular rate, regular rhythm, S1 normal heart sound, S2 normal heart sound, no murmurs, no rub and no gallops GI normal to inspection, nondistended, normoactive bowel sounds, soft to palpation, non-tender and non-distended Extremity Extremity Narrative: There is some edema and warmth of the patient's right ankle and dorsal foot area, this extends to right above the ankle area proximally, this area is slightly tender to palpation Skin no rashes or lesions noted General Skin Exam: no breakdown Neuro oriented x3, CN's II-XII intact bilaterally, no focal motor deficits and no sensory deficits noted Sensorium / Orientation: awake and alert Speech: speech normal Psych affect normal Assessment & Plan Assessment/Plan (1) Sepsis: (2) Cellulitis of leg, right: PLAN: Plan 1. Sepsis secondary to cellulitis of the right foot and ankle, blood culture positive for strep pyogenes-I will change the patient's antibiotic coverage to Rocephin, Ancef will be discontinued #2 dehydration on a backdrop of what appears to be chronic kidney disease-zenon ent's last creatinine in the chart before this admission was 09/15/2022, his creatinine at that time was 1.76-creatinines before that time for several years previous and they were also elevated but not to that extent. I suspect the patient has a backdrop of chronic kidney disease. Continue present antibiotic, fluid administration, repeat BMP tomorrow #3 chronic obstructive pulmonary disease with exacerbation-I have elected to continue the patient's aerosol treatments and IV corticosteroids for now #4 atherosclerotic heart disease-continue present medications #5 history of ischemic cardiomyopathy-patient's last echocardiogram on file here is from 2018, his EF was 25% at that time, continue home medications, according to cardiology visits contained in his medical record here, patient has a history of an ICD. He also has a history of atrial fibrillation and he is currently on Coumadin #6 hyperlipidemia-patient is on a statin currently #7 essential hypertension-patient will remain on his present medication #8 chronic use of Coumadin-patient has a past history of PE and DVT, he will remain on Coumadin at this time, INR was 2.3 on admission, he also has a history of atrial fibrillation #9 paroxysmal atrial fibrillation-patient remains on Coumadin at this time #10 hypercoagulable state secondary to #9-patient is on Coumadin #11 chronic hoarseness-I talked briefly with ENT, I performed a CT of the chest which did not show any evidence of neoplasm, I did a CT of the soft tissues of the neck which showed a nodule on the patient's left vocal cord which may represent a neoplastic lesion, ENT told me that they could see the patient as an outpatient and they did not have to consult while the patient was in the hospital with a different problem. I will make arrangements for the patient have a follow-up visit with Dr. Prashant Cm. Total clinical time spent by myself addressing the patient's medical issues, reviewing all of his data, and collaborating with patient's care team: 38 minutes Charges/Coding Visit Charges Inpatient E&M: 37460 Subs Hosp L2
[2023-02-15] MEDS: Vancomycin IV 500 MG/100 ML BAG 100 MG IV (20:08)
[2023-02-15] MEDS: Atorvastatin Calcium 80 MG Tablet PO (20:08)
[2023-02-15 20:14] LABS: Vancomycin, Trough Level 8.5 ug/mL (5.0-15.0)
--- NOTE | 2023-02-15 20:47 | PCM.RX.CS ---
Consult Pharmacy has been consulted to manage selected antiobiotic: Vancomycin Type of Consult: Follow-up Suspected Infection: Sepsis Prior Doses of Antibiotics Received/Current Regimen: Medications Vancomycin HCl (Vancomycin) 1,000 mg in 200 mls @ 200 mls/hr IV Q24H DAGOBERTO Vancomycin HCl () 500 mg in 100 mls @ 100 mls/hr IV Q24H DAGOBERTO Stop: 02/15/23 22:00 Last Admin: 02/15/23 20:08 Dose: 100 mls/hr Labs: Sodium 135 mmol/L (136-145) L 02/14/23 06:32 Potassium 3.5 mmol/L (3.5-5.1) 02/14/23 06:32 Chloride 104 mmol/L (98-107) 02/14/23 06:32 Carbon Dioxide 25.0 mmol/L (21.0-32.0) 02/14/23 06:32 Anion Gap 6 (5-15) 02/14/23 06:32 BUN 34 mg/dL (7-18) H 02/14/23 06:32 Creatinine 2.15 mg/dL (0.70-1.30) H 02/14/23 06:32 Est GFR (MDRD) Af Amer 38 mL/min (>60) L 02/14/23 06:32 Est GFR (MDRD) Non-Af 32 mL/min (>60) L 02/14/23 06:32 BUN/Creatinine Ratio 15.8 RATIO (10-20) 02/14/23 06:32 Glucose 161 mg/dL (74-106) H 02/14/23 06:32 Vancomycin Trough 8.5 ug/mL (5.0-15.0) 02/15/23 19:17 Microbiology: Microbiology 02/13/23 19:30 Blood Culture (Wb) - No Site/Description Given Blood Culture - Preliminary Streptococcus pyogenes 02/13/23 19:15 Blood Culture (Wb) - Anticubital Left Bacteria Detection (PCR) - Final Streptococcus pyogenes 02/13/23 19:15 Blood Culture (Wb) - Anticubital Left Blood Culture - Preliminary Streptococcus pyogenes 02/13/23 22:20 Nasal Secretion SARS-CoV-2 & FLU Antigen (Rapid) - Final Weight used for dosin.3 kg Estimated Creatinine Clearance: 23 Goal Trough: 15-20 mcg/mL Pharmacy Plan for Drug Dosing: Vancomycin trough level, drawn 23.4hrs post-dose, was 8.5. This was below the target range of 15-20. Dosing calculator estimates a new dose of 1000mg q24h will give an estimated trough of 16.9. Will initiate new dose and re-draw a trough prior to third dose of new regimen. Pharmacy Service will continue to monitor and adjust dosing as required. Follow-Up Labs: Trough Vancomycin Labs to be done on [date and time ordered]: 02/18/23 @6265
[2023-02-15] MEDS: 0.9% Normal Saline 1,000 ML 100 ML IV (21:23)
[2023-02-16] VITALS (12 sets, daily range): BP systolic 94–102; BP diastolic 51–67; PULSE 75–90; RESP 15–22; TEMP 36.3–36.5; O2SAT 93–98
[2023-02-16] MEDS: 0.9% Normal Saline 1,000 ML 100 ML IV (05:22)
[2023-02-16 06:22] LABS: Absolute Neutrophil Count 21.1 X10^3/uL (2.0-7.7); Basophil# 0.05 X10^3/uL; Basophil% 0.2 % (0-1); Eosinophil# 0.07 X10^3/uL; Eosinophils% 0.3 % (0-5); Hemoglobin 9.2 g/dL (13.0-16.5); Mean Corp Hgb Conc 32.9 g/dL (32-36); Mean Corpuscular Hgb 31.1 pg (27.0-32.0); Mean Corpuscular Volume 94.6 fL (80-94); Mean Platelet Vol. 12.4 fl (6.2-12.0); Monocyte# 1.43 X10^3/uL; NRBC Flagged by Analyzer 0.2 % (0-5); Neutrophil # 21.11 X10^3/uL (2.7-7.7); Neutrophil % 89.3 % (47-70); POSITIVE DIFFERENTIAL YES; Platelet Count 160 K/mm3 (150-450); RBC Distribution Width CV 14.5 % (11.6-14.6); RBC Distribution Width SD 49.9 fl (35.1-43.9); Red Blood Count 2.96 M/mm3 (4.6-6.2); White Blood Count 23.6 K/mm3 (4.4-11.0)
[2023-02-16 06:23] LABS: International Normalized Ratio 2.4; Prothrombin Time (Protime)PT. 25.8 SECONDS (11.7-14.9)
[2023-02-16 06:34] LABS: Differential Indicated SCAN CRITERIA MET
[2023-02-16 06:38] LABS: Anion Gap 7 (5-15); BUN 55 mg/dL (7-18); BUN/Creat Ratio 29.3 RATIO (10-20); Calcium,Total 8.7 mg/dL (8.5-10.1); Chloride 111 mmol/L (98-107); Creatinine, Serum 1.88 mg/dL (0.70-1.30); EST Glomerular Filtration Rate 37 mL/min (>60); Est Glom Filt Rate - Afr Amer 45 mL/min (>60); Estimated Creatinine Clearance 26.25 ml/min; Glucose 147 mg/dL (74-106); Potassium 3.7 mmol/L (3.5-5.1); Sodium Level 139 mmol/L (136-145)
[2023-02-16] MEDS: Ipratropium/Albuterol Sulfate 3 ML AMPUL.NEB INHALATION ×4 (07:17→19:51)
[2023-02-16 07:24] LABS: Burr Cells 2+
[2023-02-16] MEDS: Aspirin E.C. 81 MG Tablet PO (08:40)
[2023-02-16] MEDS: Carvedilol 12.5 MG Tablet PO ×2 (08:40→16:17)
[2023-02-16] MEDS: Pantoprazole Sodium 40 MG Tablet PO (08:41)
[2023-02-16] MEDS: Ensure Plus High Protein 120 ML LIQUID PO ×4 (08:41→21:53)
[2023-02-16] MEDS: Montelukast 10 MG Tablet PO (08:42)
[2023-02-16] MEDS: Acetaminophen 325 MG Tablet 650 MG PO (08:47)
--- NOTE | 2023-02-16 12:59 | PN.HOSP_ITS ---
Reason for Visit Reason for Visit: Diagnoses Sepsis, unspecified organism (02/13/23) Elevated white blood cell count, unspecified (02/13/23) Chronic obstructive pulmonary disease with (acute) exacerbation (02/13/23) Cellulitis of right lower limb (02/13/23) Cellulitis of unspecified part of limb (02/13/23) Acute kidney failure, unspecified (02/13/23) Subjective Subjective Patient was seen and examined today, his white blood cell count has diminished slightly, patient has no complaints of any fevers or chills, his right foot and ankle area is calender tender to palpation and warm. Objective Data Objective Data Vital Signs: Vital Signs Temp Pulse Resp BP Pulse Ox O2 Del Method 97.7 F L 89 16 94/51 L 96 Room Air 02/16/23 10:23 02/16/23 11:10 02/16/23 11:10 02/16/23 10:23 02/16/23 10:23 02/16/23 10:23 Oxygen Delivery Method Room Air Weight: 57.3 kg Body Mass Index (BMI) 20.4 Intake & Output: Intake and Output for Last 24 Hours 02/14/23 02/15/23 02/16/23 23:59 23:59 23:59 Intake Total 1947.33 / 1947.33 2391.33 / 2391.33 1170.00 / 1170.00 Output Total 500 / 900 1325 / 1325 300 / 300 Balance 1447.33 / 1047.33 1066.33 / 1066.33 870.00 / 870.00 Lab / Micro Data Result Diagrams: 02/16/23 05:25 02/16/23 05:25 Labs: Laboratory Results - last 24 hr 02/15/23 19:17: Vancomycin Trough 8.5 02/16/23 05:25: PT 25.8 H, INR 2.4 02/16/23 05:25: WBC 23.6 H, RBC 2.96 L, Hgb 9.2 L, Hct 28.0 L, MCV 94.6 H, MCH 31.1, MCHC 32.9, RDW Std Deviation 49.9 H, RDW Coeff of Curtis 14.5, Plt Count 160, MPV 12.4 H, Immature Gran % (Auto) 1.200 H, Neut % (Auto) 89.3 H, Lymph % (Auto) 3.0 L, [place] % (Auto) 6.0, Eos % (Auto) 0.3, Baso % (Auto) 0.2, Absolute Neuts (auto) 21.1 H, Absolute Lymphs (auto) 0.70 L, Nucleated RBC % 0.2, Ana Cells 2+ 02/16/23 05:25: Sodium 139, Potassium 3.7, Chloride 111 H, Carbon Dioxide 21.0, Anion Gap 7, BUN 55 H, Creatinine 1.88 H, Estim Creat Clear Calc 26.25, Est GFR (MDRD) Af Amer 45 L, Est GFR (MDRD) Non-Af 37 L, BUN/Creatinine Ratio 29.3 H, Glucose 147 H, Calcium 8.7 Micro: Microbiology 02/13/23 19:30 Blood Culture (Wb) - No Site/Description Given Blood Culture - Final Streptococcus pyogenes 02/13/23 19:15 Blood Culture (Wb) - Anticubital Left Bacteria Detection (PCR) - Final Streptococcus pyogenes 02/13/23 19:15 Blood Culture (Wb) - Anticubital Left Blood Culture - Final Streptococcus pyogenes 02/13/23 22:20 Nasal Secretion SARS-CoV-2 & FLU Antigen (Rapid) - Final Radiography Diagnostic Testing: Radiology Impression Chest CT 02/15/23 11:52 IMPRESSION: No evidence of pulmonary embolism, thoracic aortic aneurysm, or dissection. No acute abnormality identified with biapical pulmonary emphysema and calcified pleural parenchymal scarring. Electronically Signed: Maeve Hopson MD at 13:42 EDT , Soft Tissue Neck CT 02/15/23 11:52 IMPRESSION: Asymmetric soft tissue thickening of the left hypopharynx with a small enhancing nodule in the left vocal cord, which may represent an inflammatory or neoplastic lesion. Recommend correlation with direct visualization. Electronically Signed: Maeve Hopson MD at 14:17 EDT , Physical Exam Narrative alert, oriented x3 and no apparent distress General Appearance: cooperative, well kempt and well developed Orientation / Consciousness: awake, oriented to person and oriented to place HEENT normocephalic, head/scalp atraumatic and moist oral mucous membranes HEENT Narrative: Patient has a hoarse voice Eyes PERRL, EOMs intact bilaterally and conjunctivae normal Neck supple, no JVD, thyroid normal and no carotid bruits General: trachea midline Resp normal respiratory effort, no retractions, no use of accessory muscles and clear to auscultation bilaterally Auscultation: Negative for rales, rhonchi or wheezes Cardio regular rate, regular rhythm, S1 normal heart sound, S2 normal heart sound, no murmurs, no rub and no gallops GI normal to inspection, nondistended, normoactive bowel sounds, soft to palpation, non-tender and non-distended Extremity Extremity Narrative: There is some edema and warmth of the patient's right ankle and dorsal foot area, this extends to right above the ankle area proximally, this area is sl ightly tender to palpation Skin no rashes or lesions noted General Skin Exam: no breakdown Neuro oriented x3, CN's II-XII intact bilaterally, no focal motor deficits and no sensory deficits noted Sensorium / Orientation: awake and alert Speech: speech normal Psych affect normal Assessment & Plan Assessment/Plan (1) Cellulitis of leg, right: (2) Sepsis: PLAN: Plan 1. Sepsis secondary to cellulitis of the right foot and ankle, blood culture positive for strep pyogenes-patient remains on Rocephin 2 g daily at this time chosen not to get infectious diseases involved with the patient's care as the white count is improving slowly. #2 dehydration on a backdrop of what appears to be chronic kidney disease- patient's last creatinine in the chart before this admission was 09/15/2022, his creatinine at that time was 1.76-creatinines before that time for several years previous and they were also elevated but not to that extent. I suspect the patient has a backdrop of chronic kidney disease. Continue present antibiotic, fluid administration, patient's creatinine today is 1.88 and BUN is 55, I have elected to stop his IV fluid administration at this time. #3 chronic obstructive pulmonary disease with exacerbation-I have elected to continue the patient's aerosol treatments and IV corticosteroids for now #4 atherosclerotic heart disease-continue present medications #5 history of ischemic cardiomyopathy-patient's last echocardiogram on file here is from 2018, his EF was 25% at that time, continue home medications, according to cardiology visits contained in his medical record here, patient has a history of an ICD. 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 I will make arrangements for the patient have a follow-up visit with Dr. Prashant Cm. Total clinical time spent by myself addressing the patient's medical issues, reviewing all of his data, and collaborating with patient's care team: 38 minutes Charges/Coding Visit Charges Inpatient E&M: 40596 Subs Hosp L2
[2023-02-16 13:04] LABS: Pathologist Review Reviewed
[2023-02-16 13:07] LABS: Pathologist Review Reviewed
[2023-02-16 13:17] LABS: Pathologist Review Reviewed
[2023-02-16] MEDS: 0.9% Saline Lock 10 ML Syringe IV (21:53)
[2023-02-16] MEDS: Atorvastatin Calcium 80 MG Tablet PO (21:54)
[2023-02-16] MEDS: Menthol/Lanolin/Calamine/Znox 113 GM Tube 1 APPLIC TOPICAL (21:54)
[2023-02-17] VITALS (10 sets, daily range): BP systolic 110–125; BP diastolic 70–78; PULSE 77–88; RESP 19–22; TEMP 36.1–36.4; O2SAT 91–98
[2023-02-17 04:57] LABS: International Normalized Ratio 2.9; Prothrombin Time (Protime)PT. 29.9 SECONDS (11.7-14.9)
[2023-02-17] MEDS: 0.9% Saline Lock 10 ML Syringe IV (05:59)
[2023-02-17] MEDS: Ipratropium/Albuterol Sulfate 3 ML AMPUL.NEB INHALATION ×4 (07:11→19:50)
[2023-02-17] MEDS: Aspirin E.C. 81 MG Tablet PO (08:37)
[2023-02-17] MEDS: Carvedilol 12.5 MG Tablet PO ×2 (08:37→16:56)
[2023-02-17] MEDS: Pantoprazole Sodium 40 MG Tablet PO (10:15)
[2023-02-17] MEDS: Menthol/Lanolin/Calamine/Znox 113 GM Tube 1 APPLIC TOPICAL (10:15)
[2023-02-17] MEDS: Ensure Plus High Protein 120 ML LIQUID PO ×3 (10:15→16:56)
[2023-02-17] MEDS: Montelukast 10 MG Tablet PO (10:18)
--- NOTE | 2023-02-17 11:21 | CASEMGMT ---
ARY reviewed therapy's notes and therapy is recommending patient go somewhere for short term rehab. ARY met with patient and his , Amalia. ARY introduced self and role at [facility]. ARY explained therapy's recommendation to go somewhere for short term rehab. Patient's confirmed patient cannot go home if he can't even stand an pivot. Patient is normally independent, always outside doing work. ARY told Amalia SW will bring her a list of fpc facilities. Shaorn BRENNAN
--- NOTE | 2023-02-17 11:28 | CASEMGMT ---
A list of SNF providers including quality and resource use data and consistent with patient?s preferred geographic region, medical needs, and insurance network were provided from the [employer] Guide. Terra CHEN, ENVIRONMENTAL SYSTEMS COORDINATOR
--- NOTE | 2023-02-17 15:15 | PCM.PN.HOSP ---
Subjective Subjective Doing well, no issues overnight. Objective Data Objective Data Vital Signs: Vital Signs Temp Pulse Resp BP Pulse Ox O2 Del Method 97.0 F L 85 19 H 120/78 97 Room Air 02/17/23 14:18 02/17/23 14:18 02/17/23 14:18 02/17/23 14:18 02/17/23 14:18 02/17/23 14:18 Oxygen Delivery Method Room Air Weight: 126 lb 5.198 oz Body Mass Index (BMI) 20.4 Intake & Output: Intake and Output for Last 24 Hours 02/16/23 02/17/23 02/18/23 03:59 03:59 03:59 Intake Total 2391.33 / 2391.33 2631.67 / 2631.67 100 / 100 Output Total 925 / 925 550 / 550 450 / 450 Balance 1466.33 / 1466.33 2081.67 / 2081.67 -350 / -350 Lab / Micro Data Result Diagrams: 02/16/23 05:25 02/16/23 05:25 Labs: Laboratory Results - last 24 hr 02/17/23 03:47: PT 29.9 H, INR 2.9 Micro: Microbiology 02/13/23 19:30 Blood Culture (Wb) - No Site/Description Given Blood Culture - Final Streptococcus pyogenes 02/13/23 19:15 Blood Culture (Wb) - Anticubital Left Bacteria Detection (PCR) - Final Streptococcus pyogenes 02/13/23 19:15 Blood Culture (Wb) - Anticubital Left Blood Culture - Final Streptococcus pyogenes 02/13/23 22:20 Nasal Secretion SARS-CoV-2 & FLU Antigen (Rapid) - Final Physical Exam Narrative General: Alert, Oriented x3, Cooperative, No apparent distress HEENT: Atraumatic, PERRLA, EOMI, Normocephalic Oral: Moist Mucosa Neck: Supple, No JVD Lungs: Diminished, poor air movement, No rhonchi, No wheeze, No rales Cardiovascular: Regular rate, Regular Rhythm, Normal S1, Normal S2, No murmurs Abdomen: Soft, Non Tender, Non-Distended, No Hepato-splenomegaly Extremities: No edema, Capillary Refill Less than 3 Seconds Skin: Improved redness of his right lower extremity Musculoskeletal: No Tenderness to Palpation of Joints or Extremities Neurological: Moves all extremities, sensation intact Psych/Mental Status: Normal Affect, Appropriate Assessment & Plan Assessment/Plan (1) Cellulitis of leg, right: (2) Sepsis: PLAN: Plan 1. Sepsis secondary to cellulitis visit of right foot and ankle with strep pyogenes bacteremia/dehydration ? Continue with 2 g of IV Rocephin ? White count is slowly coming down ? We will obtain clearance blood cultures ? If there is no clearance we will consult ID and obtain an echo ? Likely source appears to be his cellulitis, chest CT is negative for pneumonia ? We will continue to monitor his renal function 2. COPD exacerbation ? She is not on any oxygen ? We will continue with his aerosol treatments and steroid though will decrease him down to 40 a day p.o. 3. CAD status post stent/HTN/HLD/history of ICD/A-fib ? Blood pressures are stable ? Can resume his home blood pressure medications ? Resume his home for as well as aspirin and Coumadin 4. Chronic hoarseness ? 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 CT scan of his neck showed a nodule on his left vocal cord DVT: Coumadin Charges/Coding Visit Charges Inpatient E&M: 52770 Subs Hosp L2
[2023-02-17] MEDS: Jantoven 2 MG Tablet PO (16:56)
[2023-02-17] MEDS: Atorvastatin Calcium 80 MG Tablet PO (21:01)
[2023-02-18] VITALS (12 sets, daily range): BP systolic 112–147; BP diastolic 66–79; PULSE 80–103; RESP 18–24; TEMP 36.3–36.6; O2SAT 95–99
[2023-02-18] MEDS: Albuterol 2.5 MG/3 ML VIAL.NEB. INHALATION (03:43)
[2023-02-18 05:20] LABS: Hematocrit 29.2 % (40-54); Hemoglobin 9.6 g/dL (13.0-16.5); Mean Corp Hgb Conc 32.9 g/dL (32-36); Mean Corpuscular Hgb 31.1 pg (27.0-32.0); Mean Corpuscular Volume 94.5 fL (80-94); POSITIVE COUNT YES; POSITIVE DIFFERENTIAL YES; POSITIVE MORPHOLOGY YES; Platelet Count 220 K/mm3 (150-450); RBC Distribution Width SD 52.1 fl (35.1-43.9); Red Blood Count 3.09 M/mm3 (4.6-6.2); White Blood Count 19.9 K/mm3 (4.4-11.0)
[2023-02-18 05:25] LABS: Differential Indicated MANUAL DIFF
[2023-02-18 05:38] LABS: Anion Gap 7 (5-15); BUN 72 mg/dL (7-18); BUN/Creat Ratio 27.6 RATIO (10-20); Calcium,Total 9.2 mg/dL (8.5-10.1); Chloride 110 mmol/L (98-107); Creatinine, Serum 2.61 mg/dL (0.70-1.30); EST Glomerular Filtration Rate 25 mL/min (>60); Est Glom Filt Rate - Afr Amer 31 mL/min (>60); Glucose 123 mg/dL (74-106); Potassium 4.1 mmol/L (3.5-5.1); Sodium Level 139 mmol/L (136-145)
[2023-02-18 06:21] LABS: Anisocytosis 1+; Macrocytosis RARE
[2023-02-18 06:23] LABS: Absolute Neutrophil Count 15.7 X10^3/uL (2.0-7.7)
[2023-02-18 06:24] LABS: Absolute Lymphocyte Count 1.59 X10^3/uL (0.83-4.51); Lymphocyte 8 % (19-41); Metamyelocyte 6 % (0-1); Monocyte 7 % (0-10); Neutrophil-Segmented 79 % (47-70); Platelet Estimate ADEQUATE (ADEQ); Red Cell Morphology NORM C+C NORMAL (NORM C&C); Total Cells Counted 100 (MANUAL DIFF)
[2023-02-18] MEDS: Ipratropium/Albuterol Sulfate 3 ML AMPUL.NEB INHALATION ×5 (07:11→22:42)
[2023-02-18] MEDS: Menthol/Lanolin/Calamine/Znox 113 GM Tube 1 APPLIC TOPICAL ×2 (08:48→22:18)
[2023-02-18] MEDS: 0.9% Normal Saline 1,000 ML 75 ML IV ×2 (08:48→23:32)
[2023-02-18] MEDS: Pantoprazole Sodium 40 MG Tablet PO (08:50)
[2023-02-18] MEDS: predniSONE 20 MG Tablet 40 MG PO (08:50)
[2023-02-18] MEDS: Carvedilol 12.5 MG Tablet PO ×2 (08:50→17:07)
[2023-02-18] MEDS: Aspirin E.C. 81 MG Tablet PO (08:50)
[2023-02-18] MEDS: Montelukast 10 MG Tablet PO (08:50)
--- NOTE | 2023-02-18 10:11 | PCM.PN.HOSP ---
Subjective Subjective Doing well today, feels better than when he came in but about the same as yesterday. Unfortunately ENT did not come in yesterday to talk to him Objective Data Objective Data Vital Signs: Vital Signs Temp Pulse Resp BP Pulse Ox O2 Del Method 97.9 F 85 18 123/70 H 95 Room Air 02/18/23 08:46 02/18/23 08:46 02/18/23 08:46 02/18/23 08:46 02/18/23 08:46 02/18/23 08:46 Oxygen Delivery Method Room Air Weight: 126 lb 5.198 oz Body Mass Index (BMI) 20.4 Intake & Output: Intake and Output for Last 24 Hours 02/17/23 02/18/23 02/19/23 03:59 03:59 03:59 Intake Total 2631.67 / 2631.67 100 / 100 50 / 50 Output Total 550 / 550 750 / 750 Balance 2081.67 / 2081.67 -650 / -650 50 / 50 Lab / Micro Data Result Diagrams: 02/18/23 03:54 02/18/23 03:54 Labs: Laboratory Results - last 24 hr 02/18/23 03:54: WBC 19.9 H, RBC 3.09 L, Hgb 9.6 L, Hct 29.2 L, MCV 94.5 H, MCH 31.1, MCHC 32.9, RDW Std Deviation 52.1 H, RDW Coeff of Curtis 15.0 H, Plt Count 220, MPV 12.0, Neut % (Auto) Not Reportable, Absolute Neuts (auto) 15.7 H, Absolute Lymphs (auto) 1.59, Total Counted 100, Neutrophils % (Manual) 79 H, Lymphocytes % (Manual) 8 L, Monocytes % (Manual) 7, Metamyelocytes % 6 H, Diff Path Review March, Platelet Estimate ADEQUATE, RBC Morphology NORM C+C, Anisocytosis 1+, Macrocytosis RARE 02/18/23 03:54: Sodium 139, Potassium 4.1, Chloride 110 H, Carbon Dioxide 22.0, Anion Gap 7, BUN 72 H, Creatinine 2.61 H, Estim Creat Clear Calc 18.90, Est GFR (MDRD) Af Amer 31 L, Est GFR (MDRD) Non-Af 25 L, BUN/Creatinine Ratio 27.6 H, Glucose 123 H, Calcium 9.2 Micro: Microbiology 02/13/23 19:30 Blood Culture (Wb) - No Site/Description Given Blood Culture - Final Streptococcus pyogenes 02/13/23 19:15 Blood Culture (Wb) - Anticubital Left Bacteria Detection (PCR) - Final Streptococcus pyogenes 02/13/23 19:15 Blood Culture (Wb) - Anticubital Left Blood Culture - Final Streptococcus pyogenes 02/13/23 22:20 Nasal Secretion SARS-CoV-2 & FLU Antigen (Rapid) - Final Physical Exam Narrative General: Alert, Oriented x3, Cooperative, No apparent distress HEENT: Atraumatic, PERRLA, EOMI, Normocephalic Oral: Moist Mucosa Neck: Supple, No JVD Lungs: Diminished, poor air movement, No rhonchi, No wheeze, No rales Cardiovascular: Regular rate, Regular Rhythm, Normal S1, Normal S2, No murmurs Abdomen: Soft, Non Tender, Non-Distended, No Hepato-splenomegaly Extremities: No edema, Capillary Refill Less than 3 Seconds Skin: Improved redness of his right lower extremity Musculoskeletal: No Tenderness to Palpation of Joints or Extremities Neurological: Moves all extremities, sensation intact Psych/Mental Status: Normal Affect, Appropriate Assessment & Plan Assessment/Plan (1) Cellulitis of leg, right: (2) Sepsis: PLAN: Plan 1. Sepsis secondary to cellulitis visit of right foot and ankle with strep pyogenes bacteremia/dehydration ? Continue with 2 g of IV Rocephin ? White count is slowly coming down ?Clearance cultures are pending ? If there is no clearance we will consult ID and obtain an echo ? Likely source appears to be his cellulitis, chest CT is negative for pneumonia ? We will continue to monitor his renal function 2. COPD exacerbation ? He is not on any oxygen ? We will continue with his aerosol treatments and steroid though will decrease him down to 40 a day p.o. 3. CAD status post stent/HTN/HLD/history of ICD/A-fib ? Blood pressures are stable ? Can resume his home blood pressure medications ? Resume his home for as well as aspirin and Coumadin 4. Chronic hoarseness ? 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 CT scan of his neck showed a nodule on his left vocal cord DVT: Coumadin Charges/Coding Visit Charges Inpatient E&M: 70884 Subs Hosp L2
--- NOTE | 2023-02-18 11:16 | CASEMGMT ---
ARY spoke with patient's Amalia. SW asked if she and patient discussed going to a senior living facility short term. Amalia said patient does not want to go anywhere. ARY asked Amalia if she is going to be able to manage patient. Amalia said she thinks so and they have 2 daughters that are nurses that live nearby. ARY asked about home health and Amalia was agreeable to this. ARY told Amalia SW will continue to follow and if she changes her mind to let someone know. ARY updated RN CM. Sharon BRENNAN
[2023-02-18] MEDS: Ensure Plus High Protein 120 ML LIQUID PO (17:08)
--- NOTE | 2023-02-18 22:15 | NURSING ---
Pt became SOB while moving in bed, 90% on RA , RR 22 . LS wheezy at bases. Placed pt on 2L NC 02 went up to 96%. Encouraged pt to breath in thru nose and breath out thru mouth. Called RT for breathing tx, pt states to start feeling better. Provided education with use of IS and peep device, encouraged to call for help using call light if SOB worsen, pt demonstrated use of call light and agrees at the plan this time.
[2023-02-18] MEDS: Atorvastatin Calcium 80 MG Tablet PO (22:18)
[2023-02-19] VITALS (10 sets, daily range): BP systolic 113–127; BP diastolic 68–96; PULSE 79–89; RESP 18–20; TEMP 36.4–36.6; O2SAT 95–100
[2023-02-19 05:56] LABS: Hemoglobin 9.8 g/dL (13.0-16.5); Mean Corp Hgb Conc 32.7 g/dL (32-36); Mean Corpuscular Hgb 31.3 pg (27.0-32.0); Mean Corpuscular Volume 95.8 fL (80-94); Mean Platelet Vol. 11.9 fl (6.2-12.0); POSITIVE COUNT YES; POSITIVE MORPHOLOGY YES; Platelet Count 235 K/mm3 (150-450); RBC Distribution Width CV 15.3 % (11.6-14.6); RBC Distribution Width SD 53.7 fl (35.1-43.9); Red Blood Count 3.13 M/mm3 (4.6-6.2); White Blood Count 17.2 K/mm3 (4.4-11.0)
[2023-02-19 06:18] LABS: International Normalized Ratio 2.8; Prothrombin Time (Protime)PT. 29.3 SECONDS (11.7-14.9)
[2023-02-19 06:33] LABS: Anion Gap 7 (5-15); BUN 70 mg/dL (7-18); BUN/Creat Ratio 31.7 RATIO (10-20); Calcium,Total 9.1 mg/dL (8.5-10.1); Chloride 114 mmol/L (98-107); Creatinine, Serum 2.21 mg/dL (0.70-1.30); EST Glomerular Filtration Rate 31 mL/min (>60); Est Glom Filt Rate - Afr Amer 37 mL/min (>60); Estimated Creatinine Clearance 22.33 ml/min; Glucose 124 mg/dL (74-106); Potassium 4.4 mmol/L (3.5-5.1); Sodium Level 143 mmol/L (136-145)
[2023-02-19 06:35] LABS: Differential Indicated MANUAL DIFF
[2023-02-19 06:38] LABS: Anisocytosis 1+; Macrocytosis RARE
[2023-02-19 06:40] LABS: Absolute Neutrophil Count 14.3 X10^3/uL (2.0-7.7)
[2023-02-19 06:41] LABS: Absolute Lymphocyte Count 0.69 X10^3/uL (0.83-4.51); Lymphocyte 4 % (19-41); Monocyte 6 % (0-10); Myelocyte 7 % (0-0); Neutrophil-Band 1 % (0-5); Neutrophil-Segmented 82 % (47-70); Platelet Estimate ADEQUATE (ADEQ); Red Cell Morphology NORM C+C NORMAL (NORM C&C); Total Cells Counted 100 (MANUAL DIFF)
[2023-02-19] MEDS: Ipratropium/Albuterol Sulfate 3 ML AMPUL.NEB INHALATION ×2 (06:56→10:51)
[2023-02-19] MEDS: Carvedilol 12.5 MG Tablet PO (08:24)
[2023-02-19] MEDS: predniSONE 20 MG Tablet 40 MG PO (08:24)
[2023-02-19] MEDS: Aspirin E.C. 81 MG Tablet PO (08:24)
[2023-02-19] MEDS: Pantoprazole Sodium 40 MG Tablet PO (08:24)
[2023-02-19] MEDS: Montelukast 10 MG Tablet PO (08:24)
[2023-02-19 08:54] LABS: Pathologist Review Reviewed
--- NOTE | 2023-02-19 09:05 | CT_ITS ---
CT RIGHT LOWER EXTREMITY WITH 3-D IMAGING CLINICAL INDICATION: Swelling and continued redness, eval for abscess, right foot/ankle COMPARISON: TECHNIQUE: Axial CT images of the RIGHT lower extremity was performed IV contrast material. Coronal and sagittal reformats were provided. RADIATION DOSAGE (If Supplied By Facility): CTDIvol = ( 15.35 ) mGy, DLP = ( 545.65 ) mGycm FINDINGS: Bones: Osseous structures are normal without evidence of fracture or dislocation. No lytic or blastic osseous masses. Soft Tissues: There is evidence of diffuse soft tissue swelling involving the ankle and the foot. No focal abscess is seen. There is evidence of vascular calcification. CT/Extremity Lower without Contra IMPRESSION: Diffuse soft tissue swelling. No evidence of abscess formation. No bony abnormality is seen. Vascular calcification. Electronically Signed: Zhen Jefferson MD at 10:35 EDT ,
--- NOTE | 2023-02-19 10:38 | PCM.DC ---
Discharge Instructions Diet Discharge Diet: Low fat / Low cholesterol Activity Discharge Activity: Return to Normal Activity Dressing / Incision Call your doctor if you observe: Fever of 101 or Higher, Shortness of breath, Dizziness, Fainting spells, Swelling in the ankles, Chest pain and Increased palpitations (irregular heartbeat) Follow Up Care Test Results: Test results from this visit will be discussed in further detail at your follow-up appointment, if applicable. Discharge Plan Admission Admit Date/Time: 02/13/23 21:18 Attending Provider: James Holguin Primary Care Provider: Elliot Delgado NP Consulting Providers: Dante Price ; Asa Pina Instructions Additional Instructions / Restrictions: Follow-up with your PCP to monitor your right lower extremity cellulitis as well as your renal function while on the antibiotics. You will complete 10 more days of antibiotics. Discharge Orders/Prescriptions Prescriptions: New prednisone 20 mg Tablet 40 mg PO BREAKFAST 5 Days Qty: 10 0RF cephalexin 500 mg capsule 500 mg PO TID 10 Days Qty: 30 0RF Continued atorvastatin 80 mg tablet 80 mg PO QDAY aspirin [Adult Low Dose Aspirin] 81 mg tablet,delayed release (DR/EC) 81 mg PO QDAY warfarin [Coumadin] 5 mg tablet 5 mg PO QODAY Rx Instructions: 5 mg Thursday, Thursday, Thu, Thursday fluticasone propion-salmeterol [Wixela Inhub] 250-50 mcg/dose blister with device 1 inh INHALATION BID Label Comments: inhale one puff TWICE DAILY. rinse mouth and throat after use pantoprazole 40 mg tablet,delayed release (DR/EC) 40 mg PO DAILY Label Comments: TAKE 1 TABLET BY MOUTH DAILY montelukast 10 mg tablet 10 mg PO DAILY Label Comments: TAKE 1 TABLET BY MOUTH DAILY albuterol sulfate 90 mcg/actuation HFA aerosol inhaler 2 puff INHALATION Q6H Label Comments: inhale 2 (TWO) puffs EVERY 6 HOURS FOR 30 DAYS cholecalciferol (vitamin D3) 1,250 mcg (50,000 unit) capsule 1,250 mcg PO DAILY Label Comments: TAKE 1 CAPSULE EVERY WEEK warfarin 2 mg tablet 2 mg PO QODAY Rx Instructions: 2 mg Thursday,,Thursday carvedilol 12.5 mg tablet 12.5 mg PO BID Qty: 180 3RF losartan 25 mg tablet 25 mg PO DAILY Qty: 90 3RF Held furosemide 40 mg tablet 40 mg PO QDAY Qty: 90 3RF Hold Instructions: Resume on 02/23/23. Referrals / Follow Up: Prashant Cm MD [Med Staff - Active Staff] - 02/20/23 9:45 am (Your appt is at 1015 however you need to be at the office by 0945 for new pt paper work. ) Elliot Delgado NP, [employer] FINISH[employer] RANGE OPERATOR CHIEF-C [Primary Care Provider] - Within 1 Week Disposition Disposition (needs filled in before D/C Order can be placed): Home, Self Care
[2023-02-19] MEDS: Menthol/Lanolin/Calamine/Znox 113 GM Tube 1 APPLIC TOPICAL (11:00)
--- NOTE | 2023-02-19 12:55 | PCM.DC.SUM ---
Providers Date of Admission: 02/13/23 Primary Care Physician: Elliot Delgado, PARAPROFESSIONAL INTERPRETER-C Reason For Visit: SEPSIS, COPD EXACERBATION Diagnosis Discharge Diagnosis (1) Cellulitis of leg, right: Status: Acute Code(s): L03.115 - Cellulitis of right lower limb (2) Sepsis: Status: Acute Code(s): A41.9 - Sepsis, unspecified organism Medications at Discharge Home Medications aspirin 81 mg tablet,delayed release (Adult Low Dose Aspirin) 81 mg PO QDAY 01/21/18 atorvastatin 80 mg tablet 80 mg PO QDAY 01/21/18 warfarin 5 mg tablet (Coumadin) 5 mg PO QODAY blood thinner 01/26/18 furosemide 40 mg tablet 40 mg PO QDAY #90 tabs 09/20/19 carvedilol 12.5 mg tablet 12.5 mg PO BID #180 tabs 04/27/20 losartan 25 mg tablet 25 mg PO DAILY #90 tabs 10/12/20 albuterol sulfate 90 mcg/actuation aerosol inhaler 2 puff inhalation Q6H SOB 02/13/23 cholecalciferol (vitamin D3) 1,250 mcg (50,000 unit) capsule 1,250 mcg PO DAILY 02/13/23 fluticasone 250 mcg-salmeterol 50 mcg/dose blistr powdr for inhalation (Wixela Inhub) 1 inh inhalation BID 02/13/23 montelukast 10 mg tablet 10 mg PO DAILY 02/13/23 pantoprazole 40 mg tablet,delayed release 40 mg PO DAILY 02/13/23 warfarin 2 mg tablet 2 mg PO QODAY blood thinner 02/13/23 cephalexin 500 mg capsule 500 mg PO TID 10 days #30 caps 02/19/23 prednisone 20 mg tablet 40 mg PO BREAKFAST 5 days #10 tabs 02/19/23 Hospital Course Operations None Procedures None Summary of Care Provided Minutes Spent on Discharge: 38 Hospital Course: Per HPI: TANMAY WHITNEY, is a 77 M with a significant history of heart failure with ejection fraction; DVT and COPD who was brought from the MDs office by paramedics because of right foot pain causing him difficulty with ambulation.? Because a day before presentation patient could walk to his MDs office for an INR check and on the day of presentation patient had to be helped with ambulation his MD was concerned so patient was sent to the emergency department. Patient reports pain of severity 7 on a scale of 1-10 at his right foot.? His pain worsens with ambulation and improves with rest.? He reports erythema at his right foot. A day before presentation patient was at [facility] office for his right foot pain.? At that time he had a temperature of 100.4 Fahrenheit.? Chest x-ray and ultrasound of his right leg was done.? Reportedly the ultrasound was negative for blood clots.? Patient was discharged home. Family who was at the bedside reported that on the day before presentation patient only had a small spot of erythema.? However patient's did? have jennifer erythema of his right foot on the day of presentation. Associated with? patient's symptoms is chills, rigors and poor appetite. Also patient at baseline has? difficulty breathing.? However his difficulty with breathing worsened a day before presentation and has persisted. ? He has a yellow productive cough that appears unchanged from baseline. Hospital Course: 1. Sepsis secondary to cellulitis visit of right foot and ankle with strep pyogenes bacteremia/dehydration ? Continue with 2 g of IV Rocephin while admitted ? White count is slowly coming down ? Clearance cultures are negative ? He continued to have some pain on his lateral malleolus with palpation therefore a CT scan of his right lower extremity was obtained and was negative for any abscess or bony abnormality ? He does have have a concern for a left vocal cord neoplasm and he has an ENT appointment tomorrow morning so in light of this I elected to discussed with him the possibility for discharge today. Would plan on Keflex 500 mg p.o. 3 times daily secondary to his renal function, for 10 more days to complete 2 weeks of treatment. He expressed understanding of the risk benefits going home and does want to go home today if possible. I will hold his Lasix for a few days and do recommend that he follow-up with his PCP in 3 to 5 days to obtain a BMP to monitor his renal function. 2. COPD exacerbation ? He is not on any oxygen ? We will continue with his aerosol treatments and steroid though will decrease him down to 40 a day p.o. ? We will continue with prednisone for 5 more days on discharge, he does not need any oxygen with ambulation 3. CAD status post stent/HTN/HLD/history of ICD/A-fib ? Blood pressures are stable ? Can resume his home blood pressure medications ? Resume his home for as well as aspirin and Coumadin 4. Chronic hoarseness ? 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 CT scan of his neck showed a nodule on his left vocal cord ? Plan for ENT follow-up tomorrow morning Physical Exam Narrative General: Alert, Oriented x3, Cooperative, No apparent distress HEENT: Atraumatic, PERRLA, EOMI, Normocephalic, chronic hoarseness Oral: Moist Mucosa Neck: Supple, No JVD Lungs: Diminished, poor air movement, No rhonchi, No wheeze, No rales Cardiovascular: Regular rate, Regular Rhythm, Normal S1, Normal S2, No murmurs Abdomen: Soft, Non Tender, Non-Distended, No Hepato-splenomegaly Extremities: No edema, Capillary Refill Less than 3 Seconds, slight tender to palp on lateral malleolus Skin: Improved redness of his right lower extremity Musculoskeletal: No Tenderness to Palpation of Joints or Extremities Neurological: Moves all extremities, sensation intact Psych/Mental Status: Normal Affect, Appropriate Weight / BMI Weight Weight: 126 lb 5.198 oz Body Mass Index (BMI) 20.4 ABG / Lab / Microbiology Data Result Diagrams: 02/19/23 03:56 02/19/23 03:56 Laboratory: Laboratory Results - last 24 hr 02/18/23 03:54: Diff Path Review Reviewed 02/19/23 03:56: WBC 17.2 H, RBC 3.13 L, Hgb 9.8 L, Hct 30.0 L, MCV 95.8 H, MCH 31.3, MCHC 32.7, RDW Std Deviation 53.7 H, RDW Coeff of Curtis 15.3 H, Plt Count 235, MPV 11.9, Neut % (Auto) Not Reportable, Absolute Neuts (auto) 14.3 H, Absolute Lymphs (auto) 0.69 L, Total Counted 100, Neutrophils % (Manual) 82 H, Band Neutrophils % 1, Lymphocytes % (Manual) 4 L, Monocytes % (Manual) 6, Myelocytes % 7 H, Diff Path Review May , Platelet Estimate ADEQUATE, RBC Morphology NORM C+C, Anisocytosis 1+, Macrocytosis RARE 02/19/23 03:56: PT 29.3 H, INR 2.8 02/19/23 03:56: Sodium 143, Potassium 4.4, Chloride 114 H, Carbon Dioxide 22.0, Anion Gap 7, BUN 70 H, Creatinine 2.21 H, Estim Creat Clear Calc 22.33, Est GFR (MDRD) Af Amer 37 L, Est GFR (MDRD) Non-Af 31 L, BUN/Creatinine Ratio 31.7 H, Glucose 124 H, Calcium 9.1 Microbiology: Microbiology 02/17/23 08:27 Blood Culture (Wb) - Anticubital Left Blood Culture - Preliminary No growth in 48 hours. 02/13/23 19:30 Blood Culture (Wb) - No Site/Description Given Blood Culture - Final Streptococcus pyogenes 02/13/23 19:15 Blood Culture (Wb) - Anticubital Left Bacteria Detection (PCR) - Final Streptococcus pyogenes 02/13/23 19:15 Blood Culture (Wb) - Anticubital Left Blood Culture - Final Streptococcus pyogenes 02/13/23 22:20 Nasal Secretion SARS-CoV-2 & FLU Antigen (Rapid) - Final Radiography Diagnostic Testing: Radiology Impression Lower Extremity CT 02/19/23 09:05 IMPRESSION: Diffuse soft tissue swelling. No evidence of abscess formation. No bony abnormality is seen. Vascular calcification. Electronically Signed: Zhen Jefferson MD at 10:35 EDT , D/C Instructions Discharge Diet: Low fat / Low cholesterol Call your doctor if you observe: Fever of 101 or Higher, Shortness of breath, Dizziness, Fainting spells, Swelling in the ankles, Chest pain and Increased palpitations (irregular heartbeat) Meaningful Use Info Meaningful Use Diagnoses (Choose all that apply): None applicable Discharge Plan Admission Admit Date/Time: 02/13/23 21:18 Attending Provider: James Holguin Primary Care Provider: Elliot Delgado NP Consulting Providers: Dante Price ; Asa Pina Instructions Additional Instructions / Restrictions: Follow-up with your PCP to monitor your right lower extremity cellulitis as well as your renal function while on the antibiotics. You will complete 10 more days of antibiotics. Discharge Orders/Prescriptions Prescriptions: New prednisone 20 mg Tablet 40 mg PO BREAKFAST 5 Days Qty: 10 0RF cephalexin 500 mg capsule 500 mg PO TID 10 Days Qty: 30 0RF Continued atorvastatin 80 mg tablet 80 mg PO QDAY aspirin [Adult Low Dose Aspirin] 81 mg tablet,delayed release (DR/EC) 81 mg PO QDAY warfarin [Coumadin] 5 mg tablet 5 mg PO QODAY Rx Instructions: 5 mg Thursday, Thursday, Thu, Thursday fluticasone propion-salmeterol [Wixela Inhub] 250-50 mcg/dose blister with device 1 inh INHALATION BID Label Comments: inhale one puff TWICE DAILY. rinse mouth and throat after use pantoprazole 40 mg tablet,delayed release (DR/EC) 40 mg PO DAILY Label Comments: TAKE 1 TABLET BY MOUTH DAILY montelukast 10 mg tablet 10 mg PO DAILY Label Comments: TAKE 1 TABLET BY MOUTH DAILY albuterol sulfate 90 mcg/actuation HFA aerosol inhaler 2 puff INHALATION Q6H Label Comments: inhale 2 (TWO) puffs EVERY 6 HOURS FOR 30 DAYS cholecalciferol (vitamin D3) 1,250 mcg (50,000 unit) capsule 1,250 mcg PO DAILY Label Comments: TAKE 1 CAPSULE EVERY WEEK warfarin 2 mg tablet 2 mg PO QODAY Rx Instructions: 2 mg Thursday,,Thursday carvedilol 12.5 mg tablet 12.5 mg PO BID Qty: 180 3RF losartan 25 mg tablet 25 mg PO DAILY Qty: 90 3RF Held furosemide 40 mg tablet 40 mg PO QDAY Qty: 90 3RF Hold Instructions: Resume on 02/23/23. Referrals / Follow Up: Prashant Cm MD [Med Staff - Active Staff] - 02/20/23 9:45 am (Your appt is at 1015 however you need to be at the office by 0945 for new pt paper work. ) Elliot Delgado NP, PARAPROFESSIONAL INTERPRETER-C [Primary Care Provider] - 02/23/23 11:00 am Disposition Disposition (needs filled in before D/C Order can be placed): Home, Self Care Charges/Coding Visit Charges Inpatient E&M: 39034 Disch Hosp >30min
[2023-02-19 13:12] LABS: Pathologist Review Reviewed
--- NOTE | 2023-02-19 13:45 | CASEMGMT ---
RN JERMAIN updated that patient is discharging today. TRACIE CM in to discuss needs with with patient and . Additional therapy recommended by therapy. RN CM discussed HHC, patient and agreeable. A list of HHC providers including quality and resource use data and consistent with the patient?s preferred geographical region, medical needs, and insurance network were provided from the [facility] Guide. Patient and prefer [facility]. RN CM sent referral to [facility] and they are able to accept the patient with planned start of care for Thursday. TRACIE CM updated patient and . Patient and had no further questions or concerns.
== END 2023-02-19 14:32 | disposition home or self-care (01) | DRG 872 ==
LOC: ED 22:14 → PCU 02-14 07:09
PROVIDERS: Internal Medicine; Admitting Provider Hospitalist; Emergency Provider Emergency Medicine; PCP Nurse Practitioner Family; Visit Provider Family Medicine
DX: A40.0 Sepsis due to streptococcus, group A (principal); E87.20 Acidosis, unspecified; D68.69 Other thrombophilia; J44.1 Chronic obstructive pulmonary disease with (acute) exacerbation; I13.0 Hypertensive heart and chronic kidney disease with heart failure and stage 1 through stage 4 chronic kidney disease, or unspecified chronic kidney disease; N17.9 Acute kidney failure, unspecified; I50.22 Chronic systolic (congestive) heart failure; L03.115 Cellulitis of right lower limb; I48.0 Paroxysmal atrial fibrillation; E86.0 Dehydration; N18.32 Chronic kidney disease, stage 3b; F17.210 Nicotine dependence, cigarettes, uncomplicated; I25.10 Atherosclerotic heart disease of native coronary artery without angina pectoris; E78.5 Hyperlipidemia, unspecified; I25.2 Old myocardial infarction; I25.5 Ischemic cardiomyopathy; J38.2 Nodules of vocal cords; R49.0 Dysphonia; Z95.5 Presence of coronary angioplasty implant and graft; Z95.810 Presence of automatic (implantable) cardiac defibrillator; Z79.01 Long term (current) use of anticoagulants; Z79.82 Long term (current) use of aspirin; Z79.899 Other long term (current) drug therapy; Z86.711 Personal history of pulmonary embolism; Z86.718 Personal history of other venous thrombosis and embolism
CPT/HCPCS: 36415; 70491; 71045; 71260; 73610; 73700; 80048; 80202; 83605; 83880; 84550; 85025; 85610; 87040; 87077; 87149; 87186; 87428; 93005; 94640; 94668; 94762; 97110; 97163; 97530; 97802; 97803; 99285; J7030; J7040; Q9967; A4216; J0696

== ENCOUNTER 2023-03-05 10:48 | Outpatient (RCR) | payer MEDICARE, SELFPAY ==
[2023-03-05 11:12] LABS: Hematocrit 28.5 % (40-54); Mean Corp Hgb Conc 31.6 g/dL (32-36); Mean Corpuscular Hgb 30.4 pg (27.0-32.0); Mean Corpuscular Volume 96.3 fL (80-94); Mean Platelet Vol. 11.3 fl (6.2-12.0); Platelet Count 130 K/mm3 (150-450); RBC Distribution Width SD 56.6 fl (35.1-43.9); Red Blood Count 2.96 M/mm3 (4.6-6.2); White Blood Count 7.2 K/mm3 (4.4-11.0)
[2023-03-05 11:19] LABS: ALB/GLOB Ratio 0.6 RATIO (0.9-2.4); AST(SGOT) 26 U/L (15-37); Alanine Aminotransfer ALT/SGPT 20 U/L (16-61); Albumin, Serum 2.3 g/dL (3.2-5.0); Alkaline Phosphatase 87 U/L (45-117); Anion Gap 3 (5-15); BUN 18 mg/dL (7-18); BUN/Creat Ratio 10.8 RATIO (10-20); Calcium,Total 8.5 mg/dL (8.5-10.1); Chloride 109 mmol/L (98-107); Creatinine, Serum 1.67 mg/dL (0.70-1.30); EST Glomerular Filtration Rate 42 mL/min (>60); Est Glom Filt Rate - Afr Amer 51 mL/min (>60); Glucose 94 mg/dL (74-106); Potassium 4.1 mmol/L (3.5-5.1); Protein, Total 6.3 g/dL (6.4-8.2); Sodium Level 140 mmol/L (136-145); Uric Acid 4.8 mg/dL (3.5-7.2)
[2023-03-05 11:50] LABS: PTHIN 87.1 pg/mL (18.4-80.1)
[2023-03-12 15:08] LABS: Renin, Plasma 2.769 ng/mL/hr (0.167-5.380)
== END 2023-03-15 00:16 | disposition home or self-care (01) ==
LOC: HHLAB 10:48
PROVIDERS: PCP Nurse Practitioner Family; Referring Provider Nurse Practitioner Family; Visit Provider Nurse Practitioner Family
DX: L03.115 Cellulitis of right lower limb (principal); J44.1 Chronic obstructive pulmonary disease with (acute) exacerbation; R78.81 Bacteremia
CPT/HCPCS: 80053; 82330; 83970; 84244; 84550; 85027